=== PATIENT | male | born 1930 | race Caucasian/White ===

== ENCOUNTER 2017-06-01 07:56 | Inpatient (IN) | payer MEDICARE, BC ==
[~2017-06-01] VITALS: Ht 171.4 cm; Wt 65.0 kg
[2017-06-01] VITALS (14 sets, daily range): BP systolic 118–149; BP diastolic 55–86; PULSE 54–65; RESP 14–20; TEMP 96.1–98.1; O2SAT 90–100
[~2017-06-01 07:56] MED LIST: ASPI81TA82 PO; ATOR40TA PO; CIPR500T4 PO; DIOV320T PO; ERGO50000 PO; GLIP5 PO; METF500 PO; OSEL75 PO; TAMS0.4C67 PO
--- NOTE | 2017-06-01 08:50 | PD ---
HPI Chief Complaint: Altered Mental Status Time Seen by Provider: 08:29 Travel History International Travel<30 days: No Contact w/Intl Traveler<30days: No Traveled to known affect area: No History of Present Illness HPI This 86-year-old male is brought to the emergency department after having a hypoglycemic episode at home. He has a history of diabetes about 30 years. He is on metformin and glipizide. His says he was thrashing around this morning and was very confused. Paramedics report that his sugar was in the 20s and that he responded well to sugar. Patient's says that he has been somewhat lethargic for the last few weeks. He has not been as active as usual. He has been sleeping a lot. He does play golf every week and was complaining that he was short of breath recently. He was taken to Dr. Knutson's office the other day and at that time his hemoglobin was 7.5. Patient is not aware of any history of anemia. He had a colonoscopy many years ago but not recently. He is not aware of losing blood in his stool. He does sleep a lot and gets short of breath easily. He does not smoke. He drinks wine occasionally he is not having pain he has been complaining of an itchy rash PFSH Past Medical History Hx Anticoagulant Therapy: Yes (asa) Cancer: No Cardiovascular Problems: Yes (STENT PLACEMENT) High Cholesterol: Yes Coronary Artery Disease: Yes Diabetes: Yes Diminished Hearing: No Endocrine: Yes Genitourinary: Yes Hypertension: Yes Kidney Stones: Yes Musculoskeletal: No Neurologic: No Psychiatric: No Reproductive: No Respiratory: No Past Surgical History Body Medical Devices: HEART STENT Cardiac Surgery: Yes (STENT PLACEMENT) Coronary Stent: Yes (25 YEARS AGO) Genitourinary Surgery: Yes (LITHOTRIPSY X1) Social History Alcohol Use: Yes (1-2 WINE DAILY) Tobacco Use: No Substance Use: No Allergies-Medications (Allergen,Severity, Reaction): Coded Allergies: No Known Allergies (Unverified Allergy, Unknown, 06/01/17) Reported Meds & Prescriptions Reported Meds & Active Scripts Active Reported Vesicare (Solifenacin) 5 Mg Tab 5 Mg PO DAILY Metformin (Metformin HCl) 1,000 Mg Tab 1,000 Mg PO BIDPC Tamsulosin (Tamsulosin HCl) 0.4 Mg Cap 0.4 Mg PO DAILY Glipizide 10 Mg Tab 10 Mg PO DAILY Take 30 minutes before a meal Diovan (Valsartan) 320 Mg Tab 320 Mg PO HS Lipitor (Atorvastatin Calcium) 40 Mg Tab 40 Mg PO HS Aspirin EC (Aspirin) 81 Mg Tabdr 81 Mg PO DAILY Review of Systems General / Constitutional: No: Fever, Chills Eyes: No: Diploplia, Blurred Vision HENT: No: Headaches, Vertigo Cardiovascular: No: Chest Pain or Discomfort, Palpitations Respiratory: Positive: Shortness of Breath, No: Cough Gastrointestinal: No: Nausea, Vomiting, Diarrhea Genitourinary: No: Urgency, Frequency Musculoskeletal: No: Myalgias Skin: Positive Rash, Positive Itching Endocrine: No: Heat Intolerance, Cold Intolerance Hematologic/Lymphatic: No: Easy Bruising Physical Exam Narrative GENERAL: Well-developed male SKIN: Focused skin assessment warm/dry. There are a few erythematous macules some which have a central excoriation HEAD: Atraumatic. Normocephalic. EYES: Pupils equal and round. No scleral icterus. No injection or drainage. ENT: No nasal bleeding or discharge. Mucous membranes pink and moist. NECK: Trachea midline. No JVD. CARDIOVASCULAR: Regular rate and rhythm. No murmur appreciated. RESPIRATORY: No accessory muscle use. Clear to auscultation. Breath sounds equal bilaterally. GASTROINTESTINAL: Abdomen soft, non-tender, nondistended. Hepatic and splenic margins not palpable. Stool is brown and guaiac positive MUSCULOSKELETAL: No obvious deformities. No clubbing. No cyanosis. No edema. NEUROLOGICAL: Awake and alert. No obvious cranial nerve deficits. Motor grossly within normal limits. Normal speech. He has poor short-term memory and has repetitive questioning PSYCHIATRIC: Appropriate mood and affect; insight and judgment normal. Data Data Last Documented VS Vital Signs Date Time Temp Pulse Resp B/P (MAP) Pulse Ox O2 Delivery O2 Flow Rate FiO2 06/01/17 09:47 56 16 126/55 (78) 97 2.00 06/01/17 08:09 98.1 06/01/17 08:00 Room Air Orders Orders Electrocardiogram (06/01/17 08:45) Complete Blood Count With Diff (06/01/17 08:45) Comprehensive Metabolic Panel (06/01/17 08:45) Prothrombin Time / Inr (Pt) (06/01/17 08:45) Act Partial Throm Time (Ptt) (06/01/17 08:45) Urinalysis - C+S If Indicated (06/01/17 08:45) Magnesium (Mg) (06/01/17 08:45) Chest, Single Ap (06/01/17 08:45) Type And Screen (06/01/17 08:45) Iron/Tibc Profile (06/01/17 08:45) Vitamin B12 (06/01/17 08:45) Folate, Serum (06/01/17 08:45) Red Blood Cells (Rbc) (06/01/17 09:40) Pantoprazole Inj (Protonix Inj) (06/01/17 10:15) Pantoprazole Inj (Protonix Inj) (06/01/17 10:15) Admit Order (Ed Use Only) (06/01/17 10:37) Labs Laboratory Tests Test 06/01/17 09:15 4 09:45 White Blood Count 9.7 TH/MM3 Red Blood Count 2.64 MIL/MM3 Hemoglobin 6.7 GM/DL Hematocrit 20.7 % Mean Corpuscular Volume 78.3 FL Mean Corpuscular Hemoglobin 25.4 PG Mean Corpuscular Hemoglobin Concent 32.4 % Red Cell Distribution Width 16.0 % Platelet Count 341 TH/MM3 Mean Platelet Volume 8.3 FL Neutrophils (%) (Auto) 81.1 % Lymphocytes (%) (Auto) 11.5 % Monocytes (%) (Auto) 6.1 % Eosinophils (%) (Auto) 0.5 % Basophils (%) (Auto) 0.8 % Neutrophils # (Auto) 7.9 TH/MM3 Lymphocytes # (Auto) 1.1 TH/MM3 Monocytes # (Auto) 0.6 TH/MM3 Eosinophils # (Auto) 0.0 TH/MM3 Basophils # (Auto) 0.1 TH/MM3 CBC Comment AUTO DIFF Differential Comment AUTO DIFF CONFIRMED Target Cells 1+ Ovalocytes 1+ Prothrombin Time 10.1 SEC Prothromb Time International Ratio 1.0 RATIO Activated Partial Thromboplast Time 22.4 SEC Blood Urea Nitrogen 18 MG/DL Creatinine 1.10 MG/DL Random Glucose 96 MG/DL Total Protein 6.9 GM/DL Albumin 3.2 GM/DL Calcium Level 8.1 MG/DL Magnesium Level 1.8 MG/DL Alkaline Phosphatase 53 U/L Aspartate Amino Transf (AST/SGOT) 19 U/L Alanine Aminotransferase (ALT/SGPT) 15 U/L Total Bilirubin 0.2 MG/DL Sodium Level 137 MEQ/L Potassium Level 4.6 MEQ/L Chloride Level 106 MEQ/L Carbon Dioxide Level 22.1 MEQ/L Anion Gap 9 MEQ/L Estimat Glomerular Filtration Rate 63 ML/MIN Iron Level 10 MCG/DL Total Iron Binding Capacity 410 MCG/DL Percent Iron Saturation 2.4 % Vitamin B12 Level 407 PG/ML Folate 17.4 NG/ML Urine Collection Type CLEAN CATCH Urine Color YELLOW Urine Turbidity CLEAR Urine pH 5.5 Urine Specific [place] GREATER/EQUAL 1.030 Urine Protein NEG mg/dL Urine Glucose (UA) NEG mg/dL Urine Ketones NEG mg/dL Urine Occult Blood NEG Urine Nitrite NEG Urine Bilirubin NEG Urine Urobilinogen 0.2 MG/DL Urine Leukocyte Esterase NEG Urine RBC 0-3 /hpf Urine WBC 0-2 /hpf Urine Squamous Epithelial Cells 0-5 /hpf Microscopic Urinalysis Comment CULT NOT INDICATED Urine Collection Time 09:45 MDM Medical Decision Making Medical Screen Exam Complete: Yes Emergency Medical Condition: Yes Medical Record Reviewed: Yes Differential Diagnosis Differential includes hypoglycemia, anemia Narrative Course His hemoglobin today is 6.8 in his stool is positive for blood. He will be admitted for further evaluation of his blood loss anemia Diagnosis Primary Impression: Anemia Admitting Information Admitting Physician Requests: Admit Torito Sawyer MD Jun 01, 2017 08:50
--- NOTE | 2017-06-01 09:22 | RADRPT ---
EXAM DATE/TIME: 06/01/2017 08:48 [facility] COMPARISON: No previous studies available for comparison. INDICATIONS : Short of breath, hypoglycemic episode. MEDICAL HISTORY : Hypertension. Hypercholesterolemia. Renal calculi. Diabetic. SURGICAL HISTORY : Carotid stent. Lithotripsy. ENCOUNTER: Initial ACUITY: 1 day PAIN SCORE: 0/10 LOCATION: chest FINDINGS: A single view of the chest demonstrates the lungs to be symmetrically aerated without evidence of mas s, infiltrate or effusion. The cardiomediastinal contours are unremarkable. Osseous structures are intact. CONCLUSION: The lungs are clear. Sarbjit Savage MD on June 01, 2017 at 9:20 Board Certified Radiologist. This report was verified electronically.
[2017-06-01 09:25] LABS: AUTOMATED NEUTROPHIL # 7.9 TH/MM3 (1.8-7.7); BASOPHIL # 0.1 TH/MM3 (0-0.2); BASOPHIL % 0.8 % (0.0-2.0); EOSINOPHIL % 0.5 % (0.0-4.0); LYMPH % 11.5 % (9.0-44.0); LYMPHOCYTE # 1.1 TH/MM3 (1.0-4.8); MEAN CELL VOLUME 78.3 FL (80.0-100.0); MEAN CORPUSCULAR HEMOGLOBIN 25.4 PG (27.0-34.0); MEAN CORPUSCULAR HGB CONC 32.4 % (32.0-36.0); MEAN PLATELET VOLUME 8.3 FL (7.0-11.0); MONO % 6.1 % (0.0-8.0); MONOCYTE # 0.6 TH/MM3 (0-0.9); NEUT % 81.1 % (16.0-70.0); PLATELET COUNT 341 TH/MM3 (150-450); RED BLOOD COUNT 2.64 MIL/MM3 (4.50-5.90); WHITE BLOOD COUNT 9.7 TH/MM3 (4.0-11.0)
[2017-06-01 09:29] LABS: HEMATOCRIT 20.7 % (39.0-51.0); HEMOGLOBIN 6.7 GM/DL (13.0-17.0)
[2017-06-01] MEDS ORDERED: DIOV320T PO (09:34)
[2017-06-01] MEDS ORDERED: LIPI40TA PO (09:34)
[2017-06-01] MEDS ORDERED: GLIP10TA6 PO (09:34)
[2017-06-01] MEDS ORDERED: ASPI81TA23 PO (09:34)
[2017-06-01] MEDS ORDERED: TAMS0.4C4 PO (09:34)
[2017-06-01] MEDS ORDERED: METF1000 PO (09:34)
[2017-06-01] MEDS ORDERED: BACT800T5 PO (09:35)
[2017-06-01] MEDS ORDERED: VESI5TAB2 PO (09:35)
[2017-06-01 09:40] LABS: PROTHROMBIN TIME - PATIENT 10.1 SEC (9.8-11.6)
[2017-06-01 09:50] LABS: BILIRUBIN, URINE NEG (NEG); BLOOD, URINE NEG (NEG); GLUCOSE,URINE NEG (NEG); KETONE, URINE NEG (NEG); NITRITE,URINE NEG (NEG); PH, URINE 5.5 (5.0-8.5); URINE COLOR YELLOW (YELLW/STRAW); URINE LEUKOCYTE ESTERASE NEG (NEG)
[2017-06-01 09:51] LABS: CALCIUM 8.1 MG/DL (8.5-10.1); OVALOCYTES 1+ (NORMAL); TARGET CELLS 1+ (NORMAL)
[2017-06-01 09:52] LABS: ALBUMIN 3.2 GM/DL (3.4-5.0); BICARBONATE 22.1 MEQ/L (21.0-32.0); BLOOD UREA NITROGEN 18 MG/DL (7-18); GLUCOSE,RANDOM 96 MG/DL (74-106); MAGNESIUM 1.8 MG/DL (1.5-2.5)
[2017-06-01 09:55] LABS: ALT (GPT) 15 U/L (12-78); AST (GOT) 19 U/L (15-37); GLOMERULAR FILTRATION RATE 63 ML/MIN (>89)
[2017-06-01 09:57] LABS: TOTAL PROTEIN 6.9 GM/DL (6.4-8.2)
[2017-06-01 09:59] LABS: RBC, URINE 0-3 /hpf (0-3); SQUAMOUS EPITHELIAL CELL URINE 0-5 /hpf (0-5); WBC, URINE 0-2 /hpf (0-5)
[2017-06-01 09:59] LABS: TOTAL BILIRUBIN ADULT 0.2 MG/DL (0.2-1.0)
[2017-06-01 10:01] LABS: ALKALINE PHOSPHATASE 53 U/L (45-117)
[2017-06-01 10:02] LABS: CHLORIDE 106 MEQ/L (98-107); SODIUM (NA) 137 MEQ/L (136-145)
[2017-06-01] MEDS ORDERED: PANTOPRAZOLE INJ 80 MG in SODIUM CHLORIDE 0.9% INJ 35 ML IV ONE (10:15)
[2017-06-01 10:44] LABS: IRON (FE) 10 MCG/DL (65-175)
[2017-06-01] MEDS: PANTOPRAZOLE INJ 80 MG in SODIUM CHLORIDE 0.9% INJ 100 ML IV SCH ×2 (11:03→20:58)
[2017-06-01 11:09] LABS: % SATURATION IRON PROFILE 2.4 % (20-50); FOLATE 17.4 NG/ML (3.1-17.5); TOTAL IRON BINDING CAPACITY 410 MCG/DL (250-450)
[2017-06-01] MEDS ORDERED: ACETAMINOPHEN 325 MG TAB PO PRN (11:45)
[2017-06-01] MEDS ORDERED: GLUCAGON 1 MG/ML VIAL IM PRN (11:45)
[2017-06-01] MEDS ORDERED: NALOXONE HCL 0.4 MG/ML AMP IV PUSH PRN (11:45)
[2017-06-01] MEDS ORDERED: SODIUM CHLORIDE 0.9% FLUSH 10 ML FLUSH IV FLUSH PRN (11:45)
[2017-06-01] MEDS ORDERED: DEXTROSE 50% IN WATER 50 ML VIAL(D50) IV PUSH PRN (11:45)
[2017-06-01] MEDS ORDERED: ONDANSETRON HCL 4 MG/2 ML VIAL IVP PRN (11:45)
[2017-06-01] MEDS ORDERED: SENNOSIDES 8.6 MG TAB PO PRN (11:45)
[2017-06-01] MEDS: DEXTROSE 5% IN WATE 1000ML INJ 1,000 ML IV SCH (12:05)
[2017-06-01] MEDS: INSULIN ASPART SUPPLEMENTAL SCALE SQ SCH ×3 (12:06→20:19)
--- NOTE | 2017-06-01 12:57 | HHI.HP ---
[facility] Non-Staff Admission Diagnosis ANEMIA Diagnoses: Chief Complaint: Confusion Travel History International Travel<30 Days: No Contact w/Intl Traveler <30 Da: No Traveled to Known Affected Are: No History of Present Illness This patient is an 86-year-old gentleman with a history of diabetes and coronary disease who was recently prescribed Bactrim for urinary tract infection by his primary care provider. Patient did have increased confusion from underlying baseline cognitive impairment per his spouse. He was not nauseated or vomiting but he was not himself and his called 911. The blood sugar on the arrival of the EMS services was 29. Here it has been in the 40s and 50s despite hypoglycemic treatment. Patient also was increasingly short of breath over the last week. His hemoglobin has dropped significantly. He is not aware of any history of anemia and does complain of some black stools. Guaiac positive evaluation was obtained in the emergency room. Patient does take aspirin daily for coronary artery disease with a stent. Cardiac evaluation per the patient recently by his primary care doctor was within normal limits. He did have some frequent urination and was placed on Bactrim again in addition to Flomax and Vesicare which he took already for urinary troubles. Patient at this time is alert and oriented. Get his blood sugar is still quite low and patient will require intravenous glucose for continued stabilization. For these reasons he is admitted to the hospital Review of Systems Constitutional: DENIES: Diaphoretic episodes, Fatigue, Fever, Weight gain, Weight loss, Chills, Dizziness, Change in appetite, Night Sweats Endocrine: DENIES: Heat/cold intolerance, Polydipsia, Polyuria, Polyphagia Eyes: DENIES: Blurred vision, Diplopia, Eye inflammation, Eye pain, Vision loss , Photosensitivity, Double Vision Ears, nose, mouth, throat: DENIES: Tinnitus, Hearing loss, Vertigo, Nasal discharge, Oral lesions, Throat pain, Hoarseness, Ear Pain, Running Nose, Epistaxis, Sinus Pain, Toothache, Odynophagia Respiratory: DENIES: Apneas, Cough, Snoring, Wheezing, Hemoptysis, Sputum production, Shortness of breath Cardiovascular: DENIES: Chest pain, Palpitations, Syncope, Dyspnea on Exertion , PND, Lower Extremity Edema, Orthopnea, Claudication Gastrointestinal: COMPLAINS OF: Black stools, DENIES: Abdominal pain, Bloody stools, Constipation, Diarrhea, Nausea, Vomiting, Difficulty Swallowing, Anorexia Musculoskeletal: DENIES: Joint pain, Muscle aches, Stiffness, Joint Swelling, Back pain, Neck pain Integumentary: DENIES: Abnormal pigmentation, Nail changes, Pruritus, Rash Neurologic: DENIES: Abnormal gait, Headache, Localized weakness, Paresthesias, Seizures, Speech Problems, Tremor, Poor Balance Psychiatric: COMPLAINS OF: Confusion, DENIES: Anxiety, Mood changes, Depression , Hallucinations, Agitation, Suicidal Ideation, Homicidal Ideation, Delusions Except as stated in HPI: all other systems reviewed are Neg Past Family Social History Past Medical History Diabetes Coronary artery disease Hypertension Hyperlipidemia Benign prostatic hyperplasia Past Surgical History Cardiac stent Reported Medications Reviewed in the EMR, no recent changes other than Bactrim Allergies: Coded Allergies: No Known Allergies (Unverified Allergy, Unknown, 06/01/17) Physical Exam Vital Signs Vital Signs Date Time Temp Pulse Resp B/P (MAP) Pulse Ox O2 Delivery O2 Flow Rate FiO2 06/01/17 10:43 57 16 120/56 (77) 97 Nasal Cannula 2.00 06/01/17 09:47 56 16 126/55 (78) 97 2.00 06/01/17 08:09 98.1 65 16 138/58 (84) 95 06/01/17 08:00 16 95 Room Air Physical Exam GENERAL: This is a well-nourished, well-developed patient, in no apparent distress. SKIN: No rashes, ecchymoses or lesions. Cool and dry. HEAD: Atraumatic. Normocephalic. No temporal or scalp tenderness. EYES: Pupils equal round and reactive. Extraocular motions intact. No scleral icterus. No injection or drainage. ENT: Nose without bleeding, purulent drainage or septal hematoma. Throat without erythema, tonsillar hypertrophy or exudate. Uvula midline. Airway patent. NECK: Trachea midline. No JVD or lymphadenopathy. Supple, nontender, no meningeal signs. CARDIOVASCULAR: Regular rate and rhythm without murmurs, gallops, or rubs. RESPIRATORY: Clear to auscultation. Breath sounds equal bilaterally. No wheezes , rales, or rhonchi. GASTROINTESTINAL: Abdomen soft, non-tender, nondistended. No hepato-splenomegaly , or palpable masses. No guarding. MUSCULOSKELETAL: Extremities without clubbing, cyanosis, or edema. No joint tenderness, effusion, or edema noted. No calf tenderness. Negative Homans sign bilaterally. NEUROLOGICAL: Awake and alert. Cranial nerves II through XII intact. Motor and sensory grossly within normal limits. Five out of 5 muscle strength in all muscle groups. Normal speech. Laboratory Laboratory Tests Test 06/01/17 09:15 06/01/17 09:45 06/01/17 12:00 White Blood Count 9.7 Red Blood Count 2.64 Hemoglobin 6.7 Hematocrit 20.7 Mean Corpuscular Volume 78.3 Mean Corpuscular Hemoglobin 25.4 Mean Corpuscular Hemoglobin Concent 32.4 Red Cell Distribution Width 16.0 Platelet Count 341 Mean Platelet Volume 8.3 Neutrophils (%) (Auto) 81.1 Lymphocytes (%) (Auto) 11.5 Monocytes (%) (Auto) 6.1 Eosinophils (%) (Auto) 0.5 Basophils (%) (Auto) 0.8 Neutrophils # (Auto) 7.9 Lymphocytes # (Auto) 1.1 Monocytes # (Auto) 0.6 Eosinophils # (Auto) 0.0 Basophils # (Auto) 0.1 CBC Comment AUTO DIFF Differential Comment AUTO DIFF CONFIRMED Target Cells 1+ Ovalocytes 1+ Prothrombin Time 10.1 Prothromb Time International Ratio 1.0 Activated Partial Thromboplast Time 22.4 Blood Urea Nitrogen 18 Creatinine 1.10 Random Glucose 96 50 Total Protein 6.9 Albumin 3.2 Calcium Level 8.1 Magnesium Level 1.8 Alkaline Phosphatase 53 Aspartate Amino Transf (AST/SGOT) 19 Alanine Aminotransferase (ALT/SGPT) 15 Total Bilirubin 0.2 Sodium Level 137 Potassium Level 4.6 Chloride Level 106 Carbon Dioxide Level 22.1 Anion Gap 9 Estimat Glomerular Filtration Rate 63 Iron Level 10 Total Iron Binding Capacity 410 Percent Iron Saturation 2.4 Vitamin B12 Level 407 Folate 17.4 Urine Collection Type CLEAN CATCH Urine Color YELLOW Urine Turbidity CLEAR Urine pH 5.5 Urine Specific [place] GREATER/EQUAL 1.030 Urine Protein NEG Urine Glucose (UA) NEG Urine Ketones NEG Urine Occult Blood NEG Urine Nitrite NEG Urine Bilirubin NEG Urine Urobilinogen 0.2 Urine Leukocyte Esterase NEG Urine RBC 0-3 Urine WBC 0-2 Urine Squamous Epithelial Cells 0-5 Microscopic Urinalysis Comment CULT NOT INDICATED Urine Collection Time 09:45 Result Diagram: 06/01/17 0915 06/01/17 1200 Imaging Last Impressions Chest X-Ray 06/01/17 0845 Signed Impressions: Service Date/Time: Thursday, June 01, 2017 08:48 - CONCLUSION: The lungs are clear. MD Gianfranco Ortiz VTE Risk Assessment Caprini VTE Risk Assessment: Mod/High Risk (score >= 2) VTE Pharm Contraindication: Active bleeding Caprini Risk Assessment Model Point Value = 1 Point Value = 2 Point Value = 3 Point Value = 5 Age 41-60 Minor surgery BMI > 25 kg/m2 Swollen legs Varicose veins or History of unexplained or recurrent spontaneous Oral contraceptives or hormone replacement Sepsis (< 1 month) Serious lung disease, including pneumonia (< 1 month) Abnormal pulmonary function Acute myocardial infarction Congestive heart failure (< 1 month) History of inflammatory bowel disease Medical patient at bed rest Age 61-74 Arthroscopic surgery Major open surgery (> 45 min) Laparoscopic surgery (> 45 min) Malignancy Confined to bed (> 72 hours) Immobilizing plaster cast Central venous access Age >= 75 History of VTE Family history of VTE Factor V Leiden Prothrombin [id number] Lupus anticoagulant Anticardiolipin antibodies Elevated serum homocysteine Heparin-induced thrombocytopenia Other congenital or acquired thrombophilia Stroke (< 1 month) Elective arthroplasty Hip, pelvis, or leg fracture Acute spinal cord injury (< 1 month) Prophylaxis Regimen Total Risk Factor Score Risk Level Prophylaxis Regimen 0-1 Low Early ambulation 2 Moderate Order ONE of the following: *Sequential Compression Device (SCD) *Heparin 5000 units SQ BID 3-4 Higher Order ONE of the following medications: *Heparin 5000 units SQ TID *Enoxaparin/Lovenox 40 mg SQ daily (WT < 150 kg, CrCl > 30 mL/min) *Enoxaparin/Lovenox 30 mg SQ daily (WT < 150 kg, CrCl > 10-29 mL/min) *Enoxaparin/Lovenox 30 mg SQ BID (WT < 150 kg, CrCl > 30 mL/min) AND/OR *Sequential Compression Device (SCD) 5 or more Highest Order ONE of the following medications: *Heparin 5000 units SQ TID (Preferred with Epidurals) *Enoxaparin/Lovenox 40 mg SQ daily (WT < 150 kg, CrCl > 30 mL/min) *Enoxaparin/Lovenox 30 mg SQ daily (WT < 150 kg, CrCl > 10-29 mL/min) *Enoxaparin/Lovenox 30 mg SQ BID (WT < 150 kg, CrCl > 30 mL/min) AND *Sequential Compression Device (SCD) Assessment and Plan Problem List: (1) Hypoglycemia ICD Code: E16.2 - Hypoglycemia, unspecified Plan: 1 patient with known diabetes and persistent hypoglycemia which is quite symptomatic Continue with dextrose infusion, hypoglycemia protocol and continue with monitoring blood sugar Previous hemoglobin A1c is 7.0 and patient has been taking metformin and a glipizide Hypoglycemia may be due to the recent Bactrim prescribed for urinary tract infection will continue to hold this medication (2) Anemia ICD Code: D64.9 - Anemia, unspecified Plan: With some evidence of GI bleeding by rectal exam in the emergency room. Will hold aspirin Follow-up after blood transfusion GI consult for possible endoscopy Continue Protonix infusion Code Status Full code Discussed Condition With Patient, ER MD, spouse Physician Certification 2 Midnight Certification Type: Admission for Inpatient Services Order for Inpatient Services The services are ordered in accordance with Medicare regulations or non- Medicare payer requirements, as applicable. In the case of services not specified as inpatient-only, they are appropriately provided as inpatient services in accordance with the 2-midnight benchmark. Estimated LOS (days): 3 3 days is the estimated time the patient will need to remain in the hospital, assuming treatment plan goals are met and no additional complications. Post-Hospital Plan: Home Rani Bergman MD Jun 01, 2017 12:57
[2017-06-01] MEDS ORDERED: SODIUM CHLOR 0.9% 250 ML INJ 250 ML IV ONE (13:00)
[2017-06-01] MEDS: TAMSULOSIN HCL 0.4 MG CAP PO SCH (13:31)
--- NOTE | 2017-06-01 16:08 | EKG ---
Date Performed: 06/01/2017 Time Performed: 08:52:15 PTAGE: 86 years EKG: SINUS BRADYCARDIA WITH OCCASIONAL SUPRAVENTRICULAR PREMATURE COMPLEXES BORDERLINE ECG PREVIOUS TRACING : 05/11/2015 02.44 Compared to previous tracing, nonspecific T wave abnormalit y is no longer present. DOCTOR: Killian Maldonado Interpretating Date/Time 06/01/2017 16:06:41
--- NOTE | 2017-06-01 16:14 | PD.CONS ---
HPI History of Present Illness This is a 86 year old male who was in his usual state of health up until a few weeks ago where he began to get fatigued tired and restless and then about 10 days ago [place] and had an episode of shortness of breath he took a rest and thereafter went home but he continued to have problems with being tired and to a lesser extent short of breath but then this morning when he woke up he was very confused and 911 was called and the ambulance found him to be hypoglycemic. The patient had gone to a medical facility and had some blood work done and he was found to have UTI and he was placed on Bactrim patient is known to be a diabetic and he takes metformin and glipizide and I think at this point it seems that the interaction here because his hypoglycemia Prior to this event the patient had been a poorly controlled diabetic is per his who is at his bedside together with a friend and basically she is the one is providing most of the history because the patient appears to be slightly confused The patient had a colonoscopy many years ago and never had an upper endoscopy The patient also apparently is on a baby aspirin a day and on admission he was found to have guaiac positive stools through the emergency room and the reports that apparently the patient has had black stools recently PFSH Past Medical History Diabetes Coronary artery disease Hypertension Hyperlipidemia Benign prostatic hyperplasia Past Surgical History Cardiac stent Coded Allergies: No Known Allergies (Unverified Allergy, Unknown, 06/01/17) Medications Current Medications Medications (Trade) Dose Ordered Sig/Quan Route PRN Reason Start Time Stop Time Status Last Admin Dose Admin Pantoprazole Sodium 80 mg/ Sodium Chloride 100 ml @ 10 mls/hr CONTINUOUS IV 06/01/17 10:15 06/01/17 11:03 Dextrose (D50w (Vial) Inj) 50 ml UNSCH PRN IV PUSH HYPOGLYCEMIA-SEE COMMENTS 06/01/17 11:45 Glucagon (Glucagon Inj) 1 mg STAT PRN IM HYPOGLYCEMIA-SEE COMMENTS 06/01/17 11:45 Dextrose 1,000 ml @ 75 mls/hr [id number] IV 06/01/17 12:00 06/01/17 12:05 Atorvastatin Calcium (Lipitor) 40 mg HS PO 06/01/17 21:00 Tamsulosin HCl (Flomax) 0.4 mg DAILY PO 06/01/17 12:00 06/01/17 13:31 Valsartan (Diovan) 320 mg HS PO 06/01/17 21:00 Insulin Aspart (NovoLOG SUPPLEMENTAL SCALE) 1 ACHS SLIDING SCALE SQ 06/01/17 12:00 Sodium Chloride (NS Flush) 2 ml UNSCH PRN IV FLUSH FLUSH AFTER USING IV ACCESS 06/01/17 11:45 Sodium Chloride (NS Flush) 2 ml BID IV FLUSH 06/01/17 21:00 Acetaminophen (Tylenol) 650 mg Q4H PRN PO TEMP > 100.4 06/01/17 11:45 Ondansetron HCl (Zofran Inj) 4 mg Q6H PRN IVP NAUSEA OR VOMITING 06/01/17 11:45 Naloxone HCl (Narcan Inj) 0.4 mg UNSCH PRN IV PUSH SEE LABEL COMMENTS 06/01/17 11:45 Sennosides (Senokot) 17.2 mg Q12H PRN PO Moderate constipation 06/01/17 11:45 Sodium Chloride 250 ml @ 15 mls/hr ONCE ONCE IV 06/01/17 13:00 06/02/17 05:39 06/01/17 13:00 Family History Noncontributory Social History Patient admits to alcohol use on a daily basis but no tobacco use Review of Systems Review of systems Patient denies any headache dizziness blurry vision, denies any chest pain cough fever chills, but apparently has had shortness of breath Denies any palpitations but apparently has had fatigue denies any polyuria dysuria hematuria, denies any numbness tingling or weakness, denies any skin rash pruritus or jaundice, denies any easy bruising or bleeding tendency, denies any recent change in mood GI Exam Vitals I&O Vital Signs Date Time Temp Pulse Resp B/P (MAP) Pulse Ox O2 Delivery O2 Flow Rate FiO2 06/01/17 15:38 97.1 63 18 125/63 100 06/01/17 15:07 97.1 60 18 139/81 100 06/01/17 14:50 97.0 58 18 135/63 98 06/01/17 14:35 96.1 58 20 137/67 98 06/01/17 12:00 96.9 65 16 132/62 (85) 97 06/01/17 12:00 96.9 65 16 132/62 (85) 97 06/01/17 10:43 57 16 120/56 (77) 97 Nasal Cannula 2.00 06/01/17 09:47 56 16 126/55 (78) 97 2.00 06/01/17 08:09 98.1 65 16 138/58 (84) 95 06/01/17 08:00 16 95 Room Air Imaging Last Impressions Chest X-Ray 06/01/17 0845 Signed Impressions: Service Date/Time: Thursday, June 01, 2017 08:48 - CONCLUSION: The lungs are clear. Sarbjit Savage MD Laboratory Test 06/01/17 09:15 06/01/17 09:45 06/01/17 12:00 White Blood Count 9.7 TH/MM3 Red Blood Count 2.64 MIL/MM3 Hemoglobin 6.7 GM/DL Hematocrit 20.7 % Mean Corpuscular Volume 78.3 FL Mean Corpuscular Hemoglobin 25.4 PG Mean Corpuscular Hemoglobin Concent 32.4 % Red Cell Distribution Width 16.0 % Platelet Count 341 TH/MM3 Mean Platelet Volume 8.3 FL Neutrophils (%) (Auto) 81.1 % Lymphocytes (%) (Auto) 11.5 % Monocytes (%) (Auto) 6.1 % Eosinophils (%) (Auto) 0.5 % Basophils (%) (Auto) 0.8 % Neutrophils # (Auto) 7.9 TH/MM3 Lymphocytes # (Auto) 1.1 TH/MM3 Monocytes # (Auto) 0.6 TH/MM3 Eosinophils # (Auto) 0.0 TH/MM3 Basophils # (Auto) 0.1 TH/MM3 CBC Comment AUTO DIFF Differential Comment AUTO DIFF CONFIRMED Target Cells 1+ Ovalocytes 1+ Prothrombin Time 10.1 SEC Prothromb Time International Ratio 1.0 RATIO Activated Partial Thromboplast Time 22.4 SEC Blood Urea Nitrogen 18 MG/DL Creatinine 1.10 MG/DL Random Glucose 96 MG/DL 50 MG/DL Total Protein 6.9 GM/DL Albumin 3.2 GM/DL Calcium Level 8.1 MG/DL Magnesium Level 1.8 MG/DL Alkaline Phosphatase 53 U/L Aspartate Amino Transf (AST/SGOT) 19 U/L Alanine Aminotransferase (ALT/SGPT) 15 U/L Total Bilirubin 0.2 MG/DL Sodium Level 137 MEQ/L Potassium Level 4.6 MEQ/L Chloride Level 106 MEQ/L Carbon Dioxide Level 22.1 MEQ/L Anion Gap 9 MEQ/L Estimat Glomerular Filtration Rate 63 ML/MIN Iron Level 10 MCG/DL Total Iron Binding Capacity 410 MCG/DL Percent Iron Saturation 2.4 % Vitamin B12 Level 407 PG/ML Folate 17.4 NG/ML Urine Collection Type CLEAN CATCH Urine Color YELLOW Urine Turbidity CLEAR Urine pH 5.5 Urine Specific [place] GREATER/EQUAL 1.030 Urine Protein NEG mg/dL Urine Glucose (UA) NEG mg/dL Urine Ketones NEG mg/dL Urine Occult Blood NEG Urine Nitrite NEG Urine Bilirubin NEG Urine Urobilinogen 0.2 MG/DL Urine Leukocyte Esterase NEG Urine RBC 0-3 /hpf Urine WBC 0-2 /hpf Urine Squamous Epithelial Cells 0-5 /hpf Microscopic Urinalysis Comment CULT NOT INDICATED Urine Collection Time 09:45 Physical Examination HEENT: Pupils round and reactive to light; normocephalic; atraumatic; no jaundice. Throat is clear. NECK: Neck is supple, no JVD, no lymphadenopathy. CHEST: Chest is clear to auscultation and percussion. CARDIAC: Regular rate and rhythm with no murmur gallop or rubs. ABDOMEN: Soft, nondistended, nontender; no hepatosplenomegaly; bowel sounds are present in all four quadrants. EXTREMITIES: No clubbing, cyanosis, or edema. SKIN: Normal; no rash; no jaundice. DRAPERY CUTTER: No focal deficits; alert and oriented 2 Assessment and Plan Plan Patient presenting with symptomatic profound anemia with complaints of shortness of breath and fatigue who also reports melena and is found to have guaiac positive stools Agree with current supportive care Monitor labs and transfuse as needed Continue with pantoprazole Patient will need an EGD and a colonoscopy But first I will obtain CT of the abdomen Further recommendations she will depend on his hospital course Balta Dangelo MD Jun 01, 2017 16:14
[2017-06-01] MEDS: SODIUM CHLORIDE 0.9% FLUSH 10 ML FLUSH IV FLUSH SCH (20:19)
[2017-06-01] MEDS: VALSARTAN 80 MG TAB PO SCH (21:00)
[2017-06-01] MEDS: ATORVASTATIN 40 MG TAB PO SCH (21:09)
[2017-06-01] MEDS ORDERED: DIATRIZOATE MEGLUM/DIATRIZOATE SOD 9 ML CUP PO ONE (21:15)
[2017-06-02] VITALS: BP 117/56; PULSE 55; RESP 20; TEMP 98.3; O2SAT 96
[2017-06-02] MEDS: METFORMIN HOLD POST IV CONTRAST SCH (00:40)
[2017-06-02] MEDS ORDERED: IOHEXOL 350 MG/ML 10 ML VIAL (for RAD DIAG) IVCONTRAST ONE (00:40)
--- NOTE | 2017-06-02 01:43 | RADRPT ---
EXAM DATE/TIME: 06/02/2017 00:33 [facility] COMPARISON: No previous studies available for comparison. INDICATIONS : Anemic complaints of shortness of breath and fatigue with melena and is found to have guaiac positiv e stools. IV CONTRAST: 95 cc Omnipaque 350 (iohexol) IV ORAL CONTRAST: Prescribed oral contrast ingested. RADIATION DOSE: 9.23 CTDIvol (mGy) MEDICAL HISTORY : Hypertension. Renal calculi. Cardiovascular diseaseDiabetes. SURGICAL HISTORY : Coronary artery stent. ENCOUNTER: Initial ACUITY: 2 days PAIN SCALE: 0/10 LOCATION: pelvis abdomen TECHNIQUE: Volumetric scanning of the abdomen and pelvis was performed. Using automated exposure control and ad justment of the mA and/or kV according to patient size, radiation dose was kept as low as reasonably achievable to obtain optimal diagnostic quality images. DICOM format image data is available electro nically for review and comparison. FINDINGS: LOWER LUNGS: Mild bilateral lower lobe atelectasis. LIVER: Homogeneous density without lesion. There is no dilation of the biliary tree. No calcified gallston es. SPLEEN: Normal size without lesion. PANCREAS: 1.7 cm round cyst at the inferior margin of the pancreatic head. Pancreas otherwise within normal hanna its. KIDNEYS: Multiple right-sided renal cysts. 1 cm posterior mid pole left renal cyst. No evidence of hydronephro sis. ADRENAL GLANDS: Within normal limits. VASCULAR: Extensive aortic/arterial calcification. Aortic diameter are within normal limits. BOWEL/MESENTERY: Mass like circumferential wall thickening of the cecum measuring 6 cm in length. Appendix within norm al limits. No evidence of bowel dilatation. No enlarged lymph nodes identified. Multiple sigmoid colo n diverticula. No evidence of acute diverticulitis. ABDOMINAL WALL: Within normal limits. RETROPERITONEUM: There is no lymphadenopathy. BLADDER: No wall thickening or mass. REPRODUCTIVE: Enlarged prostate measuring 5.9 cm in transverse dimension. Prostate calcification also noted. INGUINAL: There is no lymphadenopathy or hernia. MUSCULOSKELETAL: Small bilateral hip osteophytes. Moderate degenerative findings of the lumbar spine. CONCLUSION: 1. 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 2. No large lymph nodes. 3. Enlarged prostate. 4. Diffuse atherosclerotic disease. Arvin Medina MD on June 02, 2017 at 1:31 Board Certified Radiologist. This report was verified electronically.
[2017-06-02] MEDS: DEXTROSE 5% IN WATE 1000ML INJ 1,000 ML IV SCH (05:13)
[2017-06-02 06:52] LABS: AUTOMATED NEUTROPHIL # 5.6 TH/MM3 (1.8-7.7); BASOPHIL # 0.1 TH/MM3 (0-0.2); BASOPHIL % 0.6 % (0.0-2.0); EOSINOPHIL # 0.3 TH/MM3 (0-0.4); EOSINOPHIL % 3.9 % (0.0-4.0); HEMATOCRIT 26.3 % (39.0-51.0); HEMOGLOBIN 8.5 GM/DL (13.0-17.0); LYMPH % 21.5 % (9.0-44.0); LYMPHOCYTE # 1.9 TH/MM3 (1.0-4.8); MEAN CELL VOLUME 80.2 FL (80.0-100.0); MEAN CORPUSCULAR HGB CONC 32.4 % (32.0-36.0); MONO % 10.8 % (0.0-8.0); NEUT % 63.2 % (16.0-70.0); PLATELET COUNT 310 TH/MM3 (150-450); RED BLOOD COUNT 3.28 MIL/MM3 (4.50-5.90); RED CELL DISTRIBUTION WIDTH 16.1 % (11.6-17.2); WHITE BLOOD COUNT 8.9 TH/MM3 (4.0-11.0)
[2017-06-02 07:09] LABS: BICARBONATE 25.8 MEQ/L (21.0-32.0)
[2017-06-02 08:00] VITALS: BP 147/58; PULSE 56; RESP 16; TEMP 97.4; O2SAT 96
[2017-06-02] MEDS: INSULIN ASPART SUPPLEMENTAL SCALE SQ SCH ×4 (08:00→21:12)
[2017-06-02] MEDS ORDERED: ASPIRIN EC 81 MG TABEC PO SCH (09:00)
[2017-06-02] MEDS: SODIUM CHLORIDE 0.9% FLUSH 10 ML FLUSH IV FLUSH SCH ×2 (09:00→20:23)
[2017-06-02] MEDS: TAMSULOSIN HCL 0.4 MG CAP PO SCH (09:07)
--- NOTE | 2017-06-02 09:53 | HHI.GIFU ---
Subjective Remarks Pt is sitting in bed, denies nausea, vomiting, abd pain, melena or hematochezia , he is accompanied by a friend and (Gracy Loomis) Objective Vitals I&O Vital Signs Date Time Temp Pulse Resp B/P (MAP) Pulse Ox O2 Delivery O2 Flow Rate FiO2 06/02/17 00:00 98.3 55 20 117/56 (76) 96 06/01/17 21:54 97.2 54 16 125/86 90 06/01/17 20:00 97.4 58 20 129/63 (85) 97 06/01/17 18:45 97.5 62 18 134/60 95 06/01/17 18:30 97.5 61 18 128/61 95 06/01/17 17:29 97.0 62 149/58 99 06/01/17 16:00 98.0 59 14 118/63 (81) 96 06/01/17 16:00 98.0 59 14 118/63 (81) 96 06/01/17 15:38 97.1 63 18 125/63 100 06/01/17 15:07 97.1 60 18 139/81 100 06/01/17 14:50 97.0 58 18 135/63 98 06/01/17 14:35 96.1 58 20 137/67 98 06/01/17 12:00 96.9 65 16 132/62 (85) 97 06/01/17 12:00 96.9 65 16 132/62 (85) 97 06/01/17 10:43 57 16 120/56 (77) 97 Nasal Cannula 2.00 I/O 06/01/17 06/01/17 06/01/17 06/02/17 06/02/17 06/02/17 07:00 15:00 23:00 07:00 15:00 23:00 Intake Total 2130 ml 60 ml Output Total 800 ml 750 ml Balance 2130 ml -740 ml -750 ml Intake Oral 1220 ml 60 ml Packed Cells 800 ml Blood Product IV Normal Saline Flush 110 ml Output Urine Total 800 ml 750 ml # Voids 7 # Bowel Movements 1 Laboratory Laboratory Tests Test 06/01/17 12:00 06/02/17 06:35 Random Glucose 50 129 White Blood Count 8.9 Red Blood Count 3.28 Hemoglobin 8.5 Hematocrit 26.3 Mean Corpuscular Volume 80.2 Mean Corpuscular Hemoglobin 26.0 Mean Corpuscular Hemoglobin Concent 32.4 Red Cell Distribution Width 16.1 Platelet Count 310 Mean Platelet Volume 8.0 Neutrophils (%) (Auto) 63.2 Lymphocytes (%) (Auto) 21.5 Monocytes (%) (Auto) 10.8 Eosinophils (%) (Auto) 3.9 Basophils (%) (Auto) 0.6 Neutrophils # (Auto) 5.6 Lymphocytes # (Auto) 1.9 Monocytes # (Auto) 1.0 Eosinophils # (Auto) 0.3 Basophils # (Auto) 0.1 CBC Comment DIFF FINAL Differential Comment Blood Urea Nitrogen 8 Creatinine 1.00 Calcium Level 8.0 Sodium Level 135 Potassium Level 4.2 Chloride Level 104 Carbon Dioxide Level 25.8 Anion Gap 5 Estimat Glomerular Filtration Rate 71 Imaging Last Impressions Chest X-Ray 06/01/17 0845 Signed Impressions: Service Date/Time: Thursday, June 01, 2017 08:48 - CONCLUSION: The lungs are clear. Sarbjit Savage MD Abdomen/Pelvis CT 06/01/17 0000 Signed Impressions: Service Date/Time: Friday, June 02, 2017 00:33 - CONCLUSION: 1. 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 2. No large lymph nodes. 3. Enlarged prostate. 4. Diffuse atherosclerotic disease. Arvin Medina MD Physical Exam HEENT: normocephalic; atraumatic; no jaundice. NECK: Neck is supple, no JVD, no lymphadenopathy. CHEST: Chest is clear to auscultation and percussion. CARDIAC: Regular rate and rhythm with no murmur gallop or rubs. ABDOMEN: Soft, nondistended, nontender; no hepatosplenomegaly; bowel sounds are present in all four quadrants. EXTREMITIES: No clubbing, cyanosis, or edema. SKIN: Normal; no rash; no jaundice. CLAIM CLINICIAN: alert and oriented. (Gracy Loomis) Assessment and Plan Plan Patient presenting with symptomatic profound anemia with complaints of shortness of breath and fatigue who also reports melena and is found to have guaiac positive stools Ct 06/01/17 showed 6 Cm cecal mass very suspicious for malignancy, no evidence of mets hgb today 8.5 s/p 2 units of blood, no bleeding reported today, he is hemodynamically stable Plan: - Healthy diet - EGD/colonoscopy on Sunday - Golytely prep tomorrow - Clear liquids tomorrow - NPO mn tomorrow - Obtain consents - CEA - Monitor hh - Transfuse as needed - Pt seen and examined by Dr. Alcantara and myself and this note is written on his behalf. (Gracy Loomis) Physician Comments Seen and examined with OFFICE TECHNOLOGY INSTRUCTOR< egd/colonoscopy planned for sunday. Discussed with pt. and family. (Roni Alcantara MD) Gracy Loomis Jun 02, 2017 09:53 Roni Alcantara MD Jun 02, 2017 17:43
[2017-06-02] MEDS: PANTOPRAZOLE INJ 80 MG in SODIUM CHLORIDE 0.9% INJ 100 ML IV SCH (10:19)
--- NOTE | 2017-06-02 11:34 | HHI.PR ---
Subjective Remarks Patient seen and evaluated today in follow-up for anemia secondary to GI bleeding and acute blood loss Hemoglobin improved after blood transfusion of 2 units packed blood cells Patient also with improvement in hypoglycemia. Now with new cecal mass found Objective Vitals Vital Signs Date Time Temp Pulse Resp B/P (MAP) Pulse Ox O2 Delivery O2 Flow Rate FiO2 06/02/17 08:00 97.4 56 16 147/58 (87) 96 06/02/17 00:00 98.3 55 20 117/56 (76) 96 06/01/17 21:54 97.2 54 16 125/86 90 06/01/17 20:00 97.4 58 20 129/63 (85) 97 06/01/17 18:45 97.5 62 18 134/60 95 06/01/17 18:30 97.5 61 18 128/61 95 06/01/17 17:29 97.0 62 149/58 99 06/01/17 16:00 98.0 59 14 118/63 (81) 96 06/01/17 16:00 98.0 59 14 118/63 (81) 96 06/01/17 15:38 97.1 63 18 125/63 100 06/01/17 15:07 97.1 60 18 139/81 100 06/01/17 14:50 97.0 58 18 135/63 98 06/01/17 14:35 96.1 58 20 137/67 98 06/01/17 12:00 96.9 65 16 132/62 (85) 97 06/01/17 12:00 96.9 65 16 132/62 (85) 97 I/O 06/01/17 06/01/17 06/01/17 06/02/17 06/02/17 06/02/17 07:00 15:00 23:00 07:00 15:00 23:00 Intake Total 2130 ml 60 ml Output Total 800 ml 750 ml Balance 2130 ml -740 ml -750 ml Intake Oral 1220 ml 60 ml Packed Cells 800 ml Blood Product IV Normal Saline Flush 110 ml Output Urine Total 800 ml 750 ml # Voids 7 # Bowel Movements 1 Result Diagram: 06/02/17 0635 06/02/17 0635 Imaging Last Impressions Chest X-Ray 06/01/17 0845 Signed Impressions: Service Date/Time: Thursday, June 01, 2017 08:48 - CONCLUSION: The lungs are clear. Sarbjit Savage MD Abdomen/Pelvis CT 06/01/17 0000 Signed Impressions: Service Date/Time: Friday, June 02, 2017 00:33 - CONCLUSION: 1. 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 2. No large lymph nodes. 3. Enlarged prostate. 4. Diffuse atherosclerotic disease. Arvin Medina MD Objective Remarks GENERAL: This is a well-nourished, well-developed patient, repeats questions CARDIOVASCULAR: Regular rate and rhythm without murmurs, gallops, or rubs. RESPIRATORY: Clear to auscultation. Breath sounds equal bilaterally. No wheezes , rales, or rhonchi. GASTROINTESTINAL: Abdomen soft, non-tender, nondistended. Normal active bowel sounds MUSCULOSKELETAL: Extremities without clubbing, cyanosis, or edema. NEURO: Alert & Oriented x4 to person, place, time, situation. Moves all ext x4 A/P Problem List: (1) Hypoglycemia ICD Code: E16.2 - Hypoglycemia, unspecified Plan: Improved Previous hemoglobin A1c 7.0. follow closely with sliding scale only and ada diet (2) Anemia ICD Code: D64.9 - Anemia, unspecified Plan: With some evidence of GI bleeding by rectal exam in the emergency room. Will hold aspirin Follow-up after blood transfusion endoscopy sunday per gi Continue Protonix po d/w gi team (3) Cognitive impairment ICD Code: R41.89 - Other symptoms and signs involving cognitive functions and awareness Plan: Cognitive eval in progress per speech therapy (4) Mass of cecum ICD Code: K63.9 - Disease of intestine, unspecified Plan: Suspicious for malignancy Workup in progress Assessment and Plan If there is no urgent surgical needs patient and family would like to pursue further aggressive treatment in their home [facility] Discharge Planning Pending endoscopy Rani Bergman MD Jun 02, 2017 11:34
[2017-06-02 12:00] VITALS: BP 142/66; PULSE 55; RESP 18; TEMP 97.8; O2SAT 96
[2017-06-02 16:00] VITALS: BP 125/62; PULSE 69; RESP 18; TEMP 98.4; O2SAT 95
[2017-06-02] MEDS ORDERED: hydrOXYzine HCL 25 MG TAB PO ONE (20:30)
[2017-06-02] MEDS: VALSARTAN 80 MG TAB PO SCH (21:00)
[2017-06-02] MEDS: ATORVASTATIN 40 MG TAB PO SCH (21:05)
[2017-06-02 21:24] VITALS: BP 162/70; PULSE 70; RESP 16; TEMP 96.2; O2SAT 98
[2017-06-03] MEDS: METFORMIN HOLD POST IV CONTRAST SCH (00:40)
[2017-06-03 01:06] VITALS: BP 150/68; PULSE 68; RESP 18; TEMP 97; O2SAT 97
[2017-06-03] MEDS: INSULIN ASPART SUPPLEMENTAL SCALE SQ SCH ×4 (07:57→21:00)
[2017-06-03 08:00] VITALS: BP 166/70; PULSE 63; RESP 18; TEMP 98.2; O2SAT 96
[2017-06-03] MEDS: SODIUM CHLORIDE 0.9% FLUSH 10 ML FLUSH IV FLUSH SCH ×2 (09:00→21:00)
[2017-06-03] MEDS: PANTOPRAZOLE SOD 40 MG DELAYED RELEASE TAB PO SCH (09:46)
[2017-06-03] MEDS: TAMSULOSIN HCL 0.4 MG CAP PO SCH (09:46)
--- NOTE | 2017-06-03 09:46 | HHI.PR ---
Subjective Remarks Patient is agreeable to proceed with the EGD/colonoscopy however he is insistent for the jd edwards to speak with his Dr. in [place], Dr. Vital, prior to the procedure. and family friend at bedside. At this time, patient denies any abdominal pain, nausea or vomiting. He states he feels well. I did speak with after my interaction with patient, she is concerned about bleeding postprocedure. She is very nervous about the trip back to [place]. Objective Vitals Vital Signs Date Time Temp Pulse Resp B/P (MAP) Pulse Ox O2 Delivery O2 Flow Rate FiO2 06/03/17 04:00 06/03/17 01:06 97.0 68 18 150/68 (95) 97 06/02/17 21:24 96.2 70 16 162/70 (100) 98 06/02/17 16:00 98.4 69 18 125/62 (83) 95 06/02/17 12:00 97.8 55 18 142/66 (91) 96 I/O 06/02/17 06/02/17 06/02/17 06/03/17 06/03/17 06/03/17 07:00 15:00 23:00 07:00 15:00 23:00 Intake Total 60 ml 480 ml Output Total 800 ml 750 ml Balance -740 ml -750 ml 480 ml Intake Oral 60 ml 480 ml Output Urine Total 800 ml 750 ml # Voids 3 5 # Bowel Movements 1 Result Diagram: 06/02/17 0635 06/02/17 0635 Imaging Last Impressions Chest X-Ray 06/01/17 0845 Signed Impressions: Service Date/Time: Thursday, June 01, 2017 08:48 - CONCLUSION: The lungs are clear. Sarbjit Savage MD Abdomen/Pelvis CT 06/01/17 0000 Signed Impressions: Service Date/Time: Friday, June 02, 2017 00:33 - CONCLUSION: 1. 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 2. No large lymph nodes. 3. Enlarged prostate. 4. Diffuse atherosclerotic disease. Arvin Medina MD Objective Remarks GENERAL: This is a well-nourished, well-developed patient, repeats questions CARDIOVASCULAR: Regular rate and rhythm without murmurs, gallops, or rubs. RESPIRATORY: Clear to auscultation. Breath sounds equal bilaterally. No wheezes , rales, or rhonchi. GASTROINTESTINAL: Abdomen soft, non-tender, nondistended. Normal active bowel sounds MUSCULOSKELETAL: Extremities without clubbing, cyanosis, or edema. NEURO: Alert & Oriented x4 to person, place, time, situation. Moves all ext x4 A/P Problem List: (1) Hypoglycemia ICD Code: E16.2 - Hypoglycemia, unspecified (2) Anemia ICD Code: D64.9 - Anemia, unspecified (3) Cognitive impairment ICD Code: R41.89 - Other symptoms and signs involving cognitive functions and awareness (4) Mass of cecum ICD Code: K63.9 - Disease of intestine, unspecified Assessment and Plan (1) Hypoglycemia much Improved Previous hemoglobin A1c 7.0. follow closely with sliding scale only and ada diet (2) Anemia With some evidence of GI bleeding by rectal exam in the emergency room. Will hold aspirin on admission Hb 6.7 now 8.5 s/p 2 units PRBC. scheduled for endoscopy/colonoscopy sunday per gi. Pt is insistent that GI physician call his Physician in [place] on Sunday prior to procedure Continue Protonix po (3) Cognitive impairment Cognitive eval in progress per speech therapy (4) Mass of cecum Suspicious for malignancy Workup in progress Discharge Planning If there is no urgent surgical needs patient and family would like to pursue further aggressive treatment in their home town of [place] GI to discuss procedure w Physician in [place] prior to EGD/Colonoscopy on Sunday per pt's request Sobia Valentine MD Jun 03, 2017 09:46
[2017-06-03] MEDS ORDERED: PEG (High)/E-LYTE SOLN 4000 ML BTL PO SCH (11:45)
[2017-06-03 12:00] VITALS: BP 125/61; PULSE 59; RESP 18; TEMP 98; O2SAT 96
[2017-06-03 16:00] VITALS: BP 155/70; PULSE 62; RESP 16; TEMP 97.5; O2SAT 96
[2017-06-03] MEDS ORDERED: PEG (High)/E-LYTE SOLN 4000 ML BTL PO ONE (16:00)
[2017-06-03 20:00] VITALS: BP 172/85; PULSE 64; RESP 16; TEMP 96.7; O2SAT 98
[2017-06-03] MEDS: VALSARTAN 80 MG TAB PO SCH (21:00)
[2017-06-03] MEDS: ATORVASTATIN 40 MG TAB PO SCH (21:55)
[2017-06-04] VITALS: BP 145/67; PULSE 58; RESP 16; TEMP 97.7; O2SAT 96
[2017-06-04 01:49] LABS: CREATININE 0.9 MG/DL (0.60-1.30)
[2017-06-04 07:02] LABS: HEMOGLOBIN 8.8 GM/DL (13.0-17.0)
[2017-06-04 07:15] LABS: BICARBONATE 25.6 MEQ/L (21.0-32.0)
[2017-06-04 07:18] LABS: CREATININE 0.88 MG/DL (0.60-1.30)
--- NOTE | 2017-06-04 07:35 | GIPROC ---
[facility] [address] [place] [address], [id number] COLONOSCOPY PROCEDURE REPORT EXAM DATE: 06/04/2017 PATIENT NAME: Aman Thompson MR #: [id number] BIRTHDATE: 1930 ENDOSCOPIST: La Alexandra MD ORDER #: [id number] MUSIC INSTRUCTOR: Kellee Merchant and Candace Gonzales STATUS: inpatient INDICATIONS: The patient is a 87 yr old male here for a colonoscopy due to anemia, gi bleeding, abnormal ct PROCEDURE PERFORMED: Colonoscopy with biopsy MEDICATIONS: None and Per Anesthesia. PREP QUALITY: good PREP TYPE:Other: ESTIMATED BLOOD LOSS: None CONSENT: The patient understands the risks and benefits of the procedure and understands that these risks include, but are not limited to: sedation, allergic reaction, infection, perforation and/or bleeding. Alternative means of evaluation and treatment include, among others: physical exam, x-rays, and/or surgical intervention. The patient elects to proceed with this endoscopic procedure. medical equipment was checked for proper function. Hand hygiene and appropriate measures for infection prevention was taken. After the risks, benefits and alternatives of the procedure were thoroughly explained, Informed consent was verified, confirmed and timeout was successfully executed by the treatment team. A digital exam revealed an enlarged prostate The Pentax [id number] endoscope was introduced through the anus and advanced to the cecum, which was identified by both the appendix and ileocecal valve. The instrument was then slowly withdrawn as the colon was fully examined. COLON FINDINGS: Ulcerated mass cecum-very fraible -biopsies diverticulosis sigmoid,descending three diminutive polyps in rectum-cold biopsy with complete removal. Retroflexed views revealed internal hemorrhoids and Retroflexed views revealed small internal hemorrhoids The scope was then completely withdrawn from the patient and the procedure terminated. PROCEDURE WITHDRAWAL TIME:6minutes ADVERSE EVENTS: There were no complications. IMPRESSIONS: 1. Ulcerated mass cecum-very fraible -biopsies diverticulosis sigmoid,descending three diminutive polyps in rectum-cold biopsy with complete removal 2. Retroflexed views revealed internal hemorrhoids 3. Retroflexed views revealed small internal hemorrhoids 4. Revealed an enlarged prostate RECOMMENDATIONS: 1. Await biopsy results. Biopsy results will not be ready for 7-10 days. If you don't hear from us in two weeks, call our office for results. 2. Benefiber 2 tsp daily 3. Probiotics from any [employer] or health food store 4. Cea level general surgery consult RECALL: Return 1 year Colonoscopy La Alexandra MD eSigned: La Alexandra MD 06/04/2017 7:35 AM cc: PATIENT NAME: Aman Thompson MR#: [id number]
--- NOTE | 2017-06-04 07:37 | GIPROC ---
[facility] [address] [place] [address], [id number] EGD PROCEDURE REPORT EXAM DATE: 06/04/2017 PATIENT NAME: Aman Thompson MR #: [id number] BIRTHDATE: 1930 ATTENDING: La Alexandra MD ORDER #: [id number] LASER SET UP OPERATOR: Candace Gonzales and Kellee Merchant STATUS: inpatient INDICATIONS: The patient is a 87 yr old male here for an EGD due to anemia, gi bleeding PROCEDURE PERFORMED: EGD w/ biopsy MEDICATIONS: None and Per Anesthesia. TOPICAL ANESTHETIC: none CONSENT: The patient understands the risks and benefits of the procedure and understands that these risks include, but are not limited to: sedation, allergic reaction, infection, perforation and/or bleeding. Alternative means of evaluation and treatment include, among others: physical exam, x-rays, and/or surgical intervention. The patient elects to proceed with this endoscopic procedure. medical equipment was checked for proper function. Hand hygiene and appropriate measures for infection prevention was taken. After the risks, benefits and alternatives of the procedure were thoroughly explained, Informed consent was verified, confirmed and timeout was successfully executed by the treatment team. The patient was anesthetized with topical anesthesia and the [id number] (Pedi C) endoscope was introduced through the mouth and advanced to the second portion of the duodenum. Retroflexed views revealed a hiatal hernia The gastroscope was then slowly withdrawn and removed. Small duodenal ulcer clean base-biopsy gastritis antrum-biopsy irregular z line-biopsy. ADVERSE EVENTS: There were no complications. IMPRESSIONS: 1. Small duodenal ulcer clean base-biopsy gastritis antrum-biopsy irregular z line-biopsy 2. Retroflexed views revealed a hiatal hernia RECOMMENDATIONS: 1. Await biopsy results. Biopsy results will not be ready for 7-10 days. If you don't hear from us in two weeks, call our office for biopsy results. 2. Anti-reflux regimen 3. Continue PPI 4. Avoid NSAIDS PATIENT CONDITION: stable DISPOSITION: Inpatient REPEAT EXAM: Return 1 year EGD La Alexandra MD eSigned: La Alexandra MD 06/04/2017 7:37 AM cc: PATIENT NAME: mAan Thompson MR#: [id number]
[2017-06-04] MEDS: INSULIN ASPART SUPPLEMENTAL SCALE SQ SCH ×4 (08:00→21:00)
[2017-06-04] MEDS: TAMSULOSIN HCL 0.4 MG CAP PO SCH (08:42)
[2017-06-04] MEDS: PANTOPRAZOLE SOD 40 MG DELAYED RELEASE TAB PO SCH (08:42)
[2017-06-04 08:46] VITALS: BP 150/87; PULSE 56; RESP 16; TEMP 97; O2SAT 96
[2017-06-04] MEDS: SODIUM CHLORIDE 0.9% FLUSH 10 ML FLUSH IV FLUSH SCH ×2 (08:53→21:00)
--- NOTE | 2017-06-04 12:53 | HHI.PR ---
Subjective Remarks Patient was seen earlier this morning. Denies any abdominal pain. He is status post EGD/colonoscopy earlier today. Denies any nausea or vomiting. Tolerating his diet. Family at bedside Objective Vitals Vital Signs Date Time Temp Pulse Resp B/P (MAP) Pulse Ox O2 Delivery O2 Flow Rate FiO2 06/04/17 08:46 97.0 56 16 150/87 (108) 96 06/04/17 08:05 52 16 121/57 (78) 97 06/04/17 07:55 55 16 114/56 (75) 96 06/04/17 07:40 96.8 61 16 90/48 (62) 97 06/04/17 00:00 97.7 58 16 145/67 (93) 96 06/03/17 20:00 96.7 64 16 172/85 (114) 98 06/03/17 16:00 97.5 62 16 155/70 (98) 96 I/O 06/03/17 06/03/17 06/03/17 06/04/17 06/04/17 06/04/17 07:00 15:00 23:00 07:00 15:00 23:00 Intake Total 690 ml 0 ml 200 ml Balance 690 ml 0 ml 200 ml Intake Oral 690 ml 0 ml Other 200 ml # Voids 5 6 2 1 # Bowel Movements 1 Result Diagram: 06/04/17 0555 06/04/17 0555 Imaging Last Impressions Chest X-Ray 06/01/17 0845 Signed Impressions: Service Date/Time: Thursday, June 01, 2017 08:48 - CONCLUSION: The lungs are clear. Sarbjit Savage MD Abdomen/Pelvis CT 06/01/17 0000 Signed Impressions: Service Date/Time: Friday, June 02, 2017 00:33 - CONCLUSION: 1. 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 2. No large lymph nodes. 3. Enlarged prostate. 4. Diffuse atherosclerotic disease. Arvin Medina MD Objective Remarks GENERAL: This is a well-nourished, well-developed patient, repeats questions CARDIOVASCULAR: Regular rate and rhythm without murmurs RESPIRATORY: Clear to auscultation. Breath sounds equal bilaterally. No wheezes GASTROINTESTINAL: Abdomen soft, non-tender, nondistended. Normal active bowel sounds MUSCULOSKELETAL: Extremities without edema. NEURO: Alert & Oriented. Moves all ext x4 A/P Problem List: (1) Hypoglycemia ICD Code: E16.2 - Hypoglycemia, unspecified (2) Anemia ICD Code: D64.9 - Anemia, unspecified (3) Cognitive impairment ICD Code: R41.89 - Other symptoms and signs involving cognitive functions and awareness (4) Mass of cecum ICD Code: K63.9 - Disease of intestine, unspecified Assessment and Plan (1) Hypoglycemia much Improved Previous hemoglobin A1c 7.0. follow closely with sliding scale only and ada diet (2) Anemia With some evidence of GI bleeding by rectal exam in the emergency room. Will hold aspirin on admission Hb 6.7 now stable at 8.8 s/p 2 units PRBC. s/p endoscopy/colonoscopy, EGD showed small duodenal ulcer/gastritis/hiatal hernia/irregular Z line. Colonoscopy showed ulcerated mass in the cecum/ diverticulosis in the sigmoid colon/polyps in the rectum. He also had internal hemorrhoids. Gastroenterology consulted general surgery. Patient is agreeable to speak with the surgeon to know what the next step will be. He would like surgery to speak with his PCP Dr. Vital in [place] to update him of recommendations. Continue Protonix po (3) Cognitive impairment Cognitive eval in progress per speech therapy (4) Mass of cecum Confirmed on colonoscopy Discharge Planning General surgery has been consulted by GI. Awaiting their recommendations. Sobia Valentine MD Jun 04, 2017 12:53
[2017-06-04 13:30] VITALS: BP 128/51; PULSE 64; RESP 16; TEMP 97.1; O2SAT 95
[2017-06-04 16:00] VITALS: BP 139/56; PULSE 57; RESP 16; TEMP 98.3; O2SAT 96
[2017-06-04 20:00] VITALS: BP 134/62; PULSE 62; RESP 18; TEMP 96.1; O2SAT 96
[2017-06-04] MEDS: VALSARTAN 80 MG TAB PO SCH (21:00)
[2017-06-04] MEDS: ATORVASTATIN 40 MG TAB PO SCH (21:00)
--- NOTE | 2017-06-04 21:39 | MB ---
cc: Perfecto Esteban MD DATE: 06/04/2017 REQUESTING PHYSICIAN: Sobia Valentine MD REASON FOR CONSULTATION: Lower GI bleed, right colonic mass concerning for malignancy. HISTORY OF PRESENT ILLNESS: The patient is an 87-year-old male who chow in [place] from [place], who developed increasing fatigue over the last several days. The patient presented to the emergency department at [facility] with shortness of breath and after workup, was found to be profoundly anemic with a hemoglobin of 6. The patient underwent transfusion as well as further workup. Gastroenterology was consulted and a colonoscopy on 06/04/2017, did reveal a right-sided ulcerated mass, very friable in the cecum. CT scan of the abdomen and pelvis does show a 6 cm cecal mass, very suspicious for malignancy. No large lymph nodes. Laboratory values currently show hemoglobin 8.8. CEA is elevated at 12.5. The patient currently has no complaints and no pain or any other symptoms at this time. He denies actually seeing any blood per rectum at a time. He is able to tolerate a diet and denies any weight loss. REVIEW OF SYSTEMS: A 12-point review of systems was conducted with the patient and is negative except for the pertinent positives mentioned above in history of present illness. PAST MEDICAL HISTORY: 1. Coronary artery disease, status post stent placement, currently on aspirin for anticoagulation. 2. Hypertension. 3. Hyperlipidemia. 4. Diabetes. 5. BPH. PAST SURGICAL HISTORY: Cardiac stent several years ago. HOME MEDICATIONS: The patient takes tamsulosin, atorvastatin, valsartan, aspirin 81 mg, metformin, glipizide, VESIcare. ALLERGIES: NO KNOWN DRUG ALLERGIES. SOCIAL HISTORY: The patient has no history of alcohol, tobacco or drug use. FAMILY HISTORY Noncontributory. The patient denies any history of colon cancer in his family. PHYSICAL EXAMINATION: VITAL SIGNS: Temperature 98.3 degrees, heart rate 57, blood pressure 139/56. GENERAL: The patient is a thin , elderly male in no acute distress. He does not appear acute or chronically ill. HEENT: Head is normocephalic, atraumatic. Pupils are round, reactive to accommodation and light. Sclerae are anicteric. Oral cavity is clear. Airway is patent. NECK: Supple. No JVD. LUNGS: Breath sounds present bilaterally. Nonlabored breathing pattern. HEART: Regular rate and rhythm. PMI is nondisplaced. ABDOMEN: Normal bowel sounds in all 4 quadrants. No masses on palpation. No organomegaly. No ascites. Small umbilical hernia, reducible. BACK: No CVA tenderness. EXTREMITIES: No clubbing, cyanosis or edema. NEUROLOGIC: The patient is alert and oriented x 3. He has long-term memory loss, consistent with mild cognitive impairment. He has nonfocal peripheral exam. Cranial nerves 2-12 are grossly intact. 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 I had a long discussion with the patient as well as his daughter about the management options including medical stabilization and outpatient treatment versus continued inpatient therapy. I did recommend, due to the patient's age and medical issues and being off aspirin, that he would benefit from early operative intervention for colectomy for treatment of bleeding. I do feel it would be appropriate to perform oncologic resection of this patient if the patient is found to be potentially curable. The CT scan was reviewed by myself including the images and there is no obvious metastasis, possible cyst or abnormality of the dome of the liver, but no obvious metastatic disease at this time. We recommend the patient be transferred to [facility] as laparoscopic right hemicolectomy surgery cannot be performed at this facility due to the limited OR facility and capabilities. Possibly plan for operation as early as Sunday. The patient can continue a regular diet at this time. Thank you very much for this consultation. We will follow along with the patient. MD JACKELINE Morton/SONJA , 08:49 PM , 09:38 PM
[2017-06-05] VITALS: BP 136/60; PULSE 64; RESP 18; TEMP 97.1; O2SAT 97
[2017-06-05 07:46] LABS: HEMATOCRIT 28.8 % (39.0-51.0); HEMOGLOBIN 8.8 GM/DL (13.0-17.0)
[2017-06-05 08:00] VITALS: BP 143/69; PULSE 59; RESP 18; TEMP 98; O2SAT 97
[2017-06-05] MEDS: INSULIN ASPART SUPPLEMENTAL SCALE SQ SCH ×4 (08:00→21:00)
--- NOTE | 2017-06-05 08:31 | HHI.GIFU ---
GI Follow-up Note Consult Follow-up Subjective: Patient laying in bed comfortably, no new complaints except .Daughter bedside.Feeling better,no episodes of further bleeding.Colonoscopy done yesterday confirmed mass in cecum, most likely malignancy.Patient was seen by surgery, operation scheduled for tomorrow.Transfer to [facility] in process.Discussed findings with patient and daughter. Objective: PHYSICAL EXAMINATION: Vitals signs stable No fever Vital Signs Date Time Temp Pulse Resp B/P (MAP) Pulse Ox O2 Delivery O2 Flow Rate FiO2 06/05/17 08:00 98.0 59 18 143/69 (93) 97 No focal deficits; alert and oriented times three. Available Data (labs, X- Rays, Procedues) : Laboratory Tests Test 06/04/17 01:17 06/04/17 05:55 06/05/17 06:00 Creatinine 0.90 MG/DL 0.88 MG/DL Estimat Glomerular Filtration Rate 80 ML/MIN 82 ML/MIN Hemoglobin 8.8 GM/DL 8.8 GM/DL Hematocrit 28.0 % 28.8 % Blood Urea Nitrogen 9 MG/DL Random Glucose 100 MG/DL Calcium Level 8.0 MG/DL Sodium Level 140 MEQ/L Potassium Level 3.9 MEQ/L Chloride Level 107 MEQ/L Carbon Dioxide Level 25.6 MEQ/L Anion Gap 7 MEQ/L ASSESSMENT/PLAN: symptomatic anemia secondary gi bleeding gi bleeding secondary cecal mass, most likely colon cancer Recommendations surgery planned for tomorrow transfuse prn colon in 1 yr unless indicated otherwise family screening for colon cancer if dc fu gi in 1 month gi will sign off call us as needed It was a pleasure seeing Aman Thompson. Thank you for this consult. Entered by: La Sy MD Jun 05, 2017 08:31
[2017-06-05] MEDS: TAMSULOSIN HCL 0.4 MG CAP PO SCH (09:17)
[2017-06-05] MEDS: PANTOPRAZOLE SOD 40 MG DELAYED RELEASE TAB PO SCH (09:17)
[2017-06-05] MEDS: SODIUM CHLORIDE 0.9% FLUSH 10 ML FLUSH IV FLUSH SCH ×2 (09:17→21:00)
--- NOTE | 2017-06-05 11:27 | HHI.PR ---
Subjective Remarks Nursing denies any deterioration since last night. Patient has numerous questions about the anticipated surgical procedure, including length of surgery , length of recovery, exactly how much they are going to cut out, etc. is at the bedside. Objective Vital Signs Date Time Temp Pulse Resp B/P (MAP) Pulse Ox O2 Delivery O2 Flow Rate FiO2 06/05/17 08:00 98.0 59 18 143/69 (93) 97 06/05/17 00:00 97.1 64 18 136/60 (85) 97 06/04/17 20:00 96.1 62 18 134/62 (86) 96 06/04/17 16:00 98.3 57 16 139/56 (83) 96 06/04/17 13:30 97.1 64 16 128/51 (76) 95 I/O 06/04/17 06/04/17 06/04/17 06/05/17 06/05/17 06/05/17 07:00 15:00 23:00 07:00 15:00 23:00 Intake Total 0 ml 800 ml 300 ml Balance 0 ml 800 ml 300 ml Intake Oral 0 ml 600 ml 300 ml Other 200 ml # Voids 2 1 Result Diagram: 06/05/17 0600 06/04/17 0555 Objective Remarks Abdomen is soft, nontender, nondistended Patient sitting up in chair, asked me multiple questions repetitively about a possible surgical procedure. A/P Assessment and Plan Cecal mass -Likely the cause of the patient's bleeding, GI suspects cancer -hold aspirin, Anticipate surgical intervention in the next 24-48 hours, transferring patient to main hospital Anemia - stable now s/p 2 units PRBC, monitor -s/p endoscopy/colonoscopy, EGD showed small duodenal ulcer/gastritis/hiatal hernia/irregular Z line. Colonoscopy showed ulcerated mass in the cecum/ diverticulosis in the sigmoid colon/polyps in the rectum. He also had internal hemorrhoids. -Continue Protonix po Cognitive impairment Cognitive eval in progress per speech therapy I answered the patient's questions about his colonic mass to the best of my ability, instructed him and his to direct any surgical questions to the surgeon for more accurate answers. SCDs given pt has had recent bleeding and anticipated surgery Discharge Planning anticipate surg intervention Leo Perkins MD Jun 05, 2017 11:27
--- NOTE | 2017-06-05 14:22 | HHI.PR ---
cc: Perfecto Esteban MD Subjective Subjective Notes Patient seen at about 0730 Resting in bed Daughter at bedside Objective Vitals/I&O Vital Signs Date Time Temp Pulse Resp B/P (MAP) Pulse Ox O2 Delivery O2 Flow Rate FiO2 06/05/17 08:00 98.0 59 18 143/69 (93) 97 06/01/17 10:43 Nasal Cannula 2.00 Labs Laboratory Tests Test 06/05/17 06:00 Hemoglobin 8.8 Hematocrit 28.8 Cardiovascular: Regular Lungs: Clear Abdomen: Non-distended, Non-tender Extremities: No edema A/P Assessment and Plan 87 year old male with anemia; cecal mass -Regular diet; NPO after [place] -Will plan for OR tomorrow -Needs to be transferred to [facility] Lauren Grossman/Professional Nursing Tutor YASHIRA Jun 05, 2017 14:22
[2017-06-05 16:00] VITALS: BP 128/60; PULSE 65; RESP 18; TEMP 98.8; O2SAT 95
[2017-06-05 17:53] VITALS: BP 120/93; PULSE 62; RESP 18; TEMP 98; O2SAT 97
[2017-06-05 20:00] VITALS: BP 140/78; PULSE 60; RESP 18; TEMP 97.2; O2SAT 98
[2017-06-05] MEDS: VALSARTAN 80 MG TAB PO SCH (21:39)
[2017-06-05] MEDS: ATORVASTATIN 40 MG TAB PO SCH (21:39)
[2017-06-06] VITALS: BP 125/60; PULSE 56; RESP 17; TEMP 98; O2SAT 97
[2017-06-06] MEDS ORDERED: LACTATED RINGER'S 1000 ML IV PRN (03:15)
[2017-06-06] MEDS ORDERED: CHLORHEXIDINE GLUCONATE 2 % 1 PACK (2 CLOTHS) TOPICAL PRN (03:15)
[2017-06-06] MEDS ORDERED: POVIDONE IODINE 5% (ANTISEPSIS KIT) 4 APPLICATIONS EACH NARE PRN (03:15)
[2017-06-06 08:00] VITALS: BP 115/55; PULSE 55; RESP 17; TEMP 97.4; O2SAT 96
[2017-06-06] MEDS: INSULIN ASPART SUPPLEMENTAL SCALE SQ SCH ×4 (08:00→19:49)
[2017-06-06] MEDS: SODIUM CHLORIDE 0.9% FLUSH 10 ML FLUSH IV FLUSH SCH ×2 (09:00→19:48)
[2017-06-06] MEDS: PANTOPRAZOLE SOD 40 MG DELAYED RELEASE TAB PO SCH (09:09)
[2017-06-06] MEDS: TAMSULOSIN HCL 0.4 MG CAP PO SCH (09:09)
--- NOTE | 2017-06-06 10:51 | HHI.PR ---
Subjective Remarks The patient had questions about surgery. He had no acute complaints. He denied abdominal pain or nausea and vomiting. Discussed with family at the bedside and nursing. Objective Vitals Vital Signs Date Time Temp Pulse Resp B/P (MAP) Pulse Ox O2 Delivery O2 Flow Rate FiO2 06/06/17 08:00 97.4 55 17 115/55 (75) 96 06/06/17 00:00 98.0 56 17 125/60 (81) 97 06/05/17 20:00 97.2 60 18 140/78 (98) 98 06/05/17 17:53 98.0 62 18 120/93 (102) 97 06/05/17 16:00 98.8 65 18 128/60 (82) 95 I/O 06/05/17 06/05/17 06/05/17 06/06/17 06/06/17 06/06/17 07:00 15:00 23:00 07:00 15:00 23:00 Intake Total 1050 ml 580 ml Balance 1050 ml 580 ml Intake Oral 1050 ml 580 ml # Voids 3 3 # Bowel Movements 0 Result Diagram: 06/06/17 0646 06/04/17 0555 Imaging Last Impressions Chest X-Ray 06/01/17 0845 Signed Impressions: Service Date/Time: Thursday, June 01, 2017 08:48 - CONCLUSION: The lungs are clear. Sarbjit Savage MD Abdomen/Pelvis CT 06/01/17 0000 Signed Impressions: Service Date/Time: Friday, June 02, 2017 00:33 - CONCLUSION: 1. 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 2. No large lymph nodes. 3. Enlarged prostate. 4. Diffuse atherosclerotic disease. Arvin Medina MD Objective Remarks GENERAL: This is a well-nourished, well-developed patient, no distress. HEENT: NC, AT. CARDIOVASCULAR: Regular rate and rhythm without murmurs, gallops, or rubs. RESPIRATORY: Clear to auscultation. Breath sounds equal bilaterally. No wheezes , rales, or rhonchi. GASTROINTESTINAL: Abdomen soft, non-tender, nondistended. Normoactive bowel sounds. MUSCULOSKELETAL: Extremities without clubbing, cyanosis, or edema. NEURO: Alert & Oriented x4 to person, place, time, situation. Moves all ext x4. PSYCH: Mood and affect appropriate. Medications and IVs Current Medications Medications (Trade) Dose Ordered Sig/Quan Route Start Time Stop Time Status Last Admin (D50w (Vial) Inj) 50 ml UNSCH PRN IV PUSH 06/01/17 11:45 (Glucagon Inj) 1 mg STAT PRN IM 06/01/17 11:45 (Lipitor) 40 mg HS PO 06/01/17 21:00 06/05/17 21:39 (Flomax) 0.4 mg DAILY PO 06/01/17 12:00 06/06/17 09:09 (Diovan) 320 mg HS PO 06/01/17 21:00 06/05/17 21:39 (NovoLOG SUPPLEMENTAL SCALE) 1 ACHS SLIDING SCALE SQ 06/01/17 12:00 06/05/17 21:00 (NS Flush) 2 ml UNSCH PRN IV FLUSH 06/01/17 11:45 (NS Flush) 2 ml BID IV FLUSH 06/01/17 21:00 06/05/17 21:00 (Tylenol) 650 mg Q4H PRN PO 06/01/17 11:45 (Zofran Inj) 4 mg Q6H PRN IVP 06/01/17 11:45 (Narcan Inj) 0.4 mg UNSCH PRN IV PUSH 06/01/17 11:45 (Senokot) 17.2 mg Q12H PRN PO 06/01/17 11:45 (Protonix) 40 mg DAILY PO 06/03/17 09:00 06/06/17 09:09 Lactated Ringer's 1,000 ml @ 30 mls/hr Q24H PRN IV 06/06/17 03:15 06/09/17 03:14 (Betadine 5% Antisepsis Kit) 1 applic SHANK CEMENTER HAND PRN EACH NARE 06/06/17 03:15 06/09/17 03:14 (Chlorhexidine 2% Cloth) 3 pack SHANK CEMENTER HAND PRN TOPICAL 06/06/17 03:15 06/09/17 03:14 A/P Problem List: (1) Hypoglycemia ICD Code: E16.2 - Hypoglycemia, unspecified (2) Anemia ICD Code: D64.9 - Anemia, unspecified (3) Cognitive impairment ICD Code: R41.89 - Other symptoms and signs involving cognitive functions and awareness (4) Mass of cecum ICD Code: K63.9 - Disease of intestine, unspecified Assessment and Plan Cecal mass Likely the cause of the patient's bleeding. Suspicious for malignancy. Colorectal surgery consult appreciated. - hold aspirin. - to the OR 06/06. Anemia Stable now s/p 2 units PRBC. S/p endoscopy/colonoscopy, EGD showed small duodenal ulcer/gastritis/hiatal hernia/irregular Z line. Colonoscopy showed ulcerated mass in the cecum/diverticulosis in the sigmoid colon/polyps in the rectum. He also had internal hemorrhoids. - Continue Protonix po. - work-up as above. Hypoglycemia The pt presented to the hospital with a hypoglycemic episode. - hold oral agents. - check a hgbA1c. - insulin sliding scale with coverage. PPx: SCDs Discharge Planning Await surgery Yoan Martell DO Jun 06, 2017 10:51
[2017-06-06] MEDS ORDERED: BUPIVACAINE/EPINEPHRINE 0.25% 50 ML VIAL ONE (11:30)
[2017-06-06] MEDS ORDERED: ePHEDrine/NS 25 MG/5 ML SYRINGE IV ONE (12:00)
[2017-06-06] MEDS ORDERED: LIDOCAINE HCL 1% PF 5 ML SYRINGE OTHER ONE (12:00)
[2017-06-06] MEDS ORDERED: ROCURONIUM INJ 50 MG/5 ML SYRINGE IV PUSH ONE (12:00)
[2017-06-06] MEDS ORDERED: NEOSTIGMINE 5 MG/5 ML SYRINGE IV PUSH ONE (12:00)
[2017-06-06] MEDS ORDERED: NORMOSOL R INJ 1,000 ML IV ONE (12:00)
[2017-06-06] MEDS ORDERED: PROPOFOL 200 MG/20 ML AMP IV ONE (12:00)
[2017-06-06] MEDS ORDERED: GLYCOPYRROLATE 1 MG/5 ML SYRINGE IV PUSH ONE (12:00)
[2017-06-06] MEDS ORDERED: ONDANSETRON HCL 4 MG/2 ML VIAL IV ONE (12:00)
[2017-06-06] MEDS ORDERED: ceFAZolin INJ 1,000 MG VIAL ONE (12:34)
[2017-06-06] MEDS ORDERED: metroNIDAZOLE 500 MG INJ 100 ML IV ONE (12:35)
[2017-06-06] MEDS ORDERED: MORPHINE SULFATE 2 MG/ML SYRINGE IV PUSH PRN (14:45)
[2017-06-06] MEDS ORDERED: ACETAMINOPHEN/HYDROcodone 325 MG/5 MG TAB PO PRN (14:45)
[2017-06-06] MEDS ORDERED: ONDANSETRON HCL 4 MG/2 ML VIAL IV PUSH PRN (14:45)
[2017-06-06] MEDS ORDERED: BENZOCAINE 20% ORAL SPR 60 ML CAN MT PRN (14:45)
[2017-06-06] MEDS ORDERED: DO NOT ADM ANY ANTICOAGULANT DRUGS PRN (15:12)
[2017-06-06] MEDS ORDERED: *morphine SULFATE 4 MG/ML PERIprocedure ONLY ONE ×2 (15:42→16:16)
[2017-06-06] MEDS: ACETAMINOPHEN 1000 MG/100 ML 100 ML IV SCH ×2 (16:10→19:46)
[2017-06-06 17:11] LABS: HEMOGLOBIN A1C 6.7 % (4.3-6.0)
[2017-06-06 17:30] VITALS: BP 128/60; PULSE 59; RESP 17; TEMP 97; O2SAT 99
[2017-06-06] MEDS: VALSARTAN 80 MG TAB PO SCH (19:46)
[2017-06-06] MEDS: ATORVASTATIN 40 MG TAB PO SCH (19:47)
[2017-06-06] MEDS: metroNIDAZOLE 500 MG INJ 100 ML IV SCH (19:47)
[2017-06-06 20:00] VITALS: BP 140/62; PULSE 72; RESP 17; TEMP 97.1; O2SAT 96
[2017-06-07] VITALS (7 sets, daily range): BP systolic 122–142; BP diastolic 56–67; PULSE 56–74; RESP 16–18; TEMP 97.3–98; O2SAT 94–99
[2017-06-07] MEDS: oxyCODONE/ACETAMINOPHEN 5 MG/325 MG TAB PO PRN ×2 (01:15→09:06)
[2017-06-07] MEDS: ACETAMINOPHEN 1000 MG/100 ML 100 ML IV SCH ×2 (04:25→10:25)
[2017-06-07] MEDS: metroNIDAZOLE 500 MG INJ 100 ML IV SCH ×2 (04:27→14:55)
[2017-06-07] MEDS: diphenhydrAMINE HCL 25 MG CAP PO PRN ×2 (04:43→11:15)
[2017-06-07 06:06] LABS: BASOPHIL # 0.1 TH/MM3 (0-0.2); BASOPHIL % 0.3 % (0.0-2.0); HEMATOCRIT 24.8 % (39.0-51.0); LYMPH % 5.3 % (9.0-44.0); MEAN CELL VOLUME 80.9 FL (80.0-100.0); MEAN CORPUSCULAR HEMOGLOBIN 26.3 PG (27.0-34.0); MEAN CORPUSCULAR HGB CONC 32.5 % (32.0-36.0); MEAN PLATELET VOLUME 8.5 FL (7.0-11.0); MONO % 5.5 % (0.0-8.0); NEUT % 88.9 % (16.0-70.0); PLATELET COUNT 298 TH/MM3 (150-450); RED BLOOD COUNT 3.06 MIL/MM3 (4.50-5.90); RED CELL DISTRIBUTION WIDTH 18.1 % (11.6-17.2)
[2017-06-07 06:37] LABS: BICARBONATE 24.8 MEQ/L (21.0-32.0); CALCIUM 7.7 MG/DL (8.5-10.1); CREATININE 1.14 MG/DL (0.60-1.30); MAGNESIUM 1.6 MG/DL (1.5-2.5)
[2017-06-07] MEDS: SODIUM CHLORIDE 0.9% FLUSH 10 ML FLUSH IV FLUSH SCH ×2 (09:00→20:48)
[2017-06-07] MEDS: TAMSULOSIN HCL 0.4 MG CAP PO SCH (09:06)
[2017-06-07] MEDS: PANTOPRAZOLE SOD 40 MG DELAYED RELEASE TAB PO SCH (09:06)
[2017-06-07] MEDS: INSULIN ASPART SUPPLEMENTAL SCALE SQ SCH ×4 (09:07→20:40)
--- NOTE | 2017-06-07 10:08 | HHI.PR ---
Subjective Subjective Notes Resting in bed Daughter at bedside Patient reports he is feeling pretty well today Likes the clear liquids SHANE Reyna at bedside Objective Vitals/I&O Vital Signs Date Time Temp Pulse Resp B/P (MAP) Pulse Ox O2 Delivery O2 Flow Rate FiO2 06/07/17 08:00 97.5 62 18 138/63 (88) 97 06/06/17 16:30 Nasal Cannula 2 Labs Laboratory Tests Test 06/07/17 05:08 White Blood Count 18.0 Red Blood Count 3.06 Hemoglobin 8.0 Hematocrit 24.8 Mean Corpuscular Volume 80.9 Mean Corpuscular Hemoglobin 26.3 Mean Corpuscular Hemoglobin Concent 32.5 Red Cell Distribution Width 18.1 Platelet Count 298 Mean Platelet Volume 8.5 Neutrophils (%) (Auto) 88.9 Lymphocytes (%) (Auto) 5.3 Monocytes (%) (Auto) 5.5 Eosinophils (%) (Auto) 0.0 Basophils (%) (Auto) 0.3 Neutrophils # (Auto) 16.0 Lymphocytes # (Auto) 1.0 Monocytes # (Auto) 1.0 Eosinophils # (Auto) 0.0 Basophils # (Auto) 0.1 CBC Comment DIFF FINAL Differential Comment Blood Urea Nitrogen 16 Creatinine 1.14 Random Glucose 283 Calcium Level 7.7 Magnesium Level 1.6 Sodium Level 135 Potassium Level 4.1 Chloride Level 103 Carbon Dioxide Level 24.8 Anion Gap 7 Estimat Glomerular Filtration Rate 61 Cardiovascular: Regular Lungs: Clear Abdomen: Other (incisions c/d/i--- Dermabond in place; abdomen mildly tender at incisions. ) Extremities: No edema A/P Assessment and Plan 87 year old male with anemia; cecal mass -POD1 lap assisted RIGHT hemicolectomy -Await pathology -Clear liquids -PT -IS -Monitor Hmg -OOB as tolerated today Attending Statement The exam, history, and the medical decision-making described in the above note were completed with the assistance of the mid-level provider. I reviewed and agree with the findings presented. I attest that I had a [id number] encounter with the patient on the same day, and personally performed and documented my assessment and findings in the medical record. Patient s/p lap assisted right hemicolectomy pain controlled AF, VSS Abdomen soft, non-distended, post-op tenderness continue supportive care, await bowel function Lauren Grossman/First Alexei AC Jun 07, 2017 10:08 Perfecto Esteban MD Jun 12, 2017 10:36
[2017-06-07] MEDS ORDERED: SODIUM CHLOR 0.9% 1000 ML INJ 1,000 ML IV SCH (13:00)
[2017-06-07] MEDS: ENOXAPARIN SODIUM 30 MG/0.3 ML SYRINGE SQ SCH (14:55)
[2017-06-07] MEDS ORDERED: diphenhydrAMINE HCL 2%/ZINC ACETATE 0.1% CREAM 30 APPLIC/30 GM TUBE TOPICAL PRN (15:30)
--- NOTE | 2017-06-07 16:46 | HHI.PR ---
Subjective Remarks The patient was resting comfortably in bed. His family was at the bedside and their questions were answered. The patient states that he has chronic itching around the abdomen and was wondering how to alleviate that. His family was concerned about his memory and were wondering about how to work that up. He has been tolerating a clear liquid diet. Discussed with nursing. Objective Vitals Vital Signs Date Time Temp Pulse Resp B/P (MAP) Pulse Ox O2 Delivery O2 Flow Rate FiO2 06/07/17 12:00 97.3 56 17 126/61 (82) 95 06/07/17 11:41 94 21 06/07/17 08:00 97.5 62 18 138/63 (88) 97 06/07/17 04:00 97.8 68 17 122/56 (78) 94 06/07/17 02:28 20 06/07/17 00:00 98.0 74 17 135/67 (89) 99 06/06/17 20:20 20 06/06/17 20:00 97.1 72 17 140/62 (88) 96 06/06/17 17:30 97.0 59 17 128/60 (82) 99 I/O 06/06/17 06/06/17 06/06/17 06/07/17 06/07/17 06/07/17 07:00 15:00 23:00 07:00 15:00 23:00 Intake Total 580 ml 800 ml 500 ml 200 ml 100 ml Output Total 270 ml 800 ml Balance 580 ml 530 ml -300 ml 200 ml 100 ml Intake Oral 580 ml 500 ml IV Total 200 ml 100 ml Other 800 ml Output Urine Total 250 ml 800 ml Estimated Blood Loss 20 ml # Voids 3 3 # Bowel Movements 1 Result Diagram: 06/07/17 0508 06/07/17 0508 Imaging Last Impressions Chest X-Ray 06/01/17 0845 Signed Impressions: Service Date/Time: Thursday, June 01, 2017 08:48 - CONCLUSION: The lungs are clear. Sarbjit Savage MD Abdomen/Pelvis CT 06/01/17 0000 Signed Impressions: Service Date/Time: Friday, June 02, 2017 00:33 - CONCLUSION: 1. 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 2. No large lymph nodes. 3. Enlarged prostate. 4. Diffuse atherosclerotic disease. Arvin Medina MD Objective Remarks GENERAL: This is a well-nourished, well-developed patient, no distress. HEENT: NC, AT. CARDIOVASCULAR: Regular rate and rhythm without murmurs, gallops, or rubs. RESPIRATORY: Clear to auscultation. Breath sounds equal bilaterally. No wheezes , rales, or rhonchi. GASTROINTESTINAL: Abdomen soft, non-tender, nondistended. Normoactive bowel sounds. MUSCULOSKELETAL: Extremities without clubbing, cyanosis, or edema. NEURO: Alert & Oriented x4 to person, place, time, situation. Moves all ext x4. PSYCH: Mood and affect appropriate. Medications and IVs Current Medications Medications (Trade) Dose Ordered Sig/Quan Route Start Time Stop Time Status Last Admin (D50w (Vial) Inj) 50 ml UNSCH PRN IV PUSH 06/01/17 11:45 (Glucagon Inj) 1 mg STAT PRN IM 06/01/17 11:45 (Lipitor) 40 mg HS PO 06/01/17 21:00 06/06/17 19:47 (Flomax) 0.4 mg DAILY PO 06/01/17 12:00 06/07/17 09:06 (Diovan) 320 mg HS PO 06/01/17 21:00 06/06/17 19:46 (NovoLOG SUPPLEMENTAL SCALE) 1 ACHS SLIDING SCALE SQ 06/01/17 12:00 06/07/17 11:47 (NS Flush) 2 ml UNSCH PRN IV FLUSH 06/01/17 11:45 (NS Flush) 2 ml BID IV FLUSH 06/01/17 21:00 06/07/17 09:00 (Tylenol) 650 mg Q4H PRN PO 06/01/17 11:45 (Narcan Inj) 0.4 mg UNSCH PRN IV PUSH 06/01/17 11:45 (Senokot) 17.2 mg Q12H PRN PO 06/01/17 11:45 (Protonix) 40 mg DAILY PO 06/03/17 09:00 06/07/17 09:06 Lactated Ringer's 1,000 ml @ 30 mls/hr Q24H PRN IV 06/06/17 03:15 06/09/17 03:14 (Betadine 5% Antisepsis Kit) 1 applic RESOURCING ADVISOR PRN EACH NARE 06/06/17 03:15 06/09/17 03:14 (Chlorhexidine 2% Cloth) 3 pack RESOURCING ADVISOR PRN TOPICAL 06/06/17 03:15 06/09/17 03:14 (Zofran Inj) 4 mg Q6H PRN IV PUSH 06/06/17 14:45 06/06/17 17:32 (Percocet 5-325 Mg) 1 tab Q6H PRN PO 06/06/17 14:45 06/07/17 09:06 (Morphine Inj) 2 mg Q3H PRN IV PUSH 06/06/17 14:45 (Lovenox Inj) 30 mg Q24H SQ 06/07/17 14:00 06/07/17 14:55 (Entereg) 12 mg BID PO 06/07/17 21:00 06/14/17 09:01 (Benadryl) 25 mg Q6H PRN PO 06/06/17 20:45 06/07/17 11:15 Sodium Chloride 1,000 ml @ 42 mls/hr [id number] IV 06/07/17 13:00 06/07/17 13:00 (Benadryl 2% Cream) 1 applic TID PRN TOPICAL 06/07/17 15:30 A/P Problem List: (1) Hypoglycemia ICD Code: E16.2 - Hypoglycemia, unspecified (2) Anemia ICD Code: D64.9 - Anemia, unspecified (3) Cognitive impairment ICD Code: R41.89 - Other symptoms and signs involving cognitive functions and awareness (4) Mass of cecum ICD Code: K63.9 - Disease of intestine, unspecified Assessment and Plan Cecal mass Likely the cause of the patient's bleeding. Suspicious for malignancy. Surgery consult appreciated. S/p right hemicolectomy 06/06. - hold aspirin. - diet per surgery. Currently on clears. - rehab efforts. - IS. - pain control. Anemia Stable now s/p 2 units PRBC. S/p endoscopy/colonoscopy, EGD showed small duodenal ulcer/gastritis/hiatal hernia/irregular Z line. Colonoscopy showed ulcerated mass in the cecum/diverticulosis in the sigmoid colon/polyps in the rectum. He also had internal hemorrhoids. - Continue Protonix po. - work-up as above. Hypoglycemia The pt presented to the hospital with a hypoglycemic episode. A1c 6.7%. - hold oral agents. On metformin 1000 mg BID at home. - insulin sliding scale with coverage. Itching Chronic problem. Has seen a facility manager in the past and was diagnosed with dermatitis. - Benadryl as needed. - outpt follow-up. Confusion Likely underlying dementia. - will refer to neurology upon discharge. PPx: Yoan Fleming DO Jun 07, 2017 16:46
--- NOTE | 2017-06-07 19:02 | MP ---
cc: Perfecto Esteban MD DATE OF OPERATION: 06/06/2017 DATE OF OPERATION: 06/06/2017. PREOPERATIVE DIAGNOSES: 1. Lower gastrointestinal bleed. 2. Right colon mass suspicious for adenocarcinoma. POSTOPERATIVE DIAGNOSES: 1. Lower gastrointestinal bleed. 2. Right colon and mass suspicious for adenocarcinoma. PROCEDURE PERFORMED: 1. Laparoscopic extended right hemicolectomy. 2. Primary repair of umbilical hernia (2 cm chronic non-incarcerated). ATTENDING SURGEON: Perfecto Esteban MD INSTITUTION DIRECTOR: Staff. ANESTHESIA: General and local anesthetic. BLOOD LOSS: Less than 25 mL. COMPLICATIONS: None. FINDINGS: Large bulky right colonic mass in the ascending colon just distal to the cecum proper, which appeared to be full thickness and visible on the outside of the specimen invading omentum and part of the proximal transverse colon. This necessitated extended right hemicolectomy for removal of the ascending and proximal transverse colon. INDICATION FOR PROCEDURE: The patient is an 87-year-old male who presented to [facility] with weakness and anemia. Workup revealed a lower gastrointestinal bleeding source at a large right colonic mass suspicious for adenocarcinoma. The patient had staging CT scan which was negative for metastatic disease and did show a large bulky tumor in the right colon. Surgical Oncology was consulted for evaluation and after discussion with the patient, as well as the patient's daughter and about the risks, benefits and alternatives to more urgent operative intervention due to bleeding, agreed to undergo the procedure. Again, risks, benefits, and alternatives were discussed with the patient and the family about control of lower GI bleed as well as treatment of his potential malignancy. Although pathology was pending, they agreed to undergo the procedure due to the extremely high likelihood of malignancy as well as this lesion being a source of bleeding. We felt that the patient would benefit from early operative intervention and we proceeded to the operating room. DESCRIPTION OF PROCEDURE: The patient was taken to the operating room, placed in supine position, and placed under endotracheal intubation. The patient's abdomen was shaved, prepped and draped in sterile fashion. Timeout was performed. The abdomen was entered through a Tomas-type technique. We used the patient's umbilical defect of the umbilicus was approximately 2 cm superior. This was an umbilical hernia primarily which was nonchronically fat incarcerated, nonacute incarcerated and was symptomatic, but not part of the patient's acute process. We opened the hernia sac and placed a 10-12 mm trocar through this defect under direct visualization. We insufflated the abdomen and surveyed the abdomen with a 5 mm 30-degree camera with no evidence of any complication from our entry. We then placed a 5 mm port in the epigastric area and a 5 mm port in the suprapubic area just to the right of the midline, again under direct visualization of the laparoscope. Local anesthetic was used at all port sites. Once we had done this, we rotated the bed towards ia with the right side out to expose the right colon. We did carefully viewed the abdomen throughout as a diagnostic and staging laparoscopy and there was no evidence of any metastatic disease. We paid particular attention to the liver without any evidence for metastatic disease or any pathology. The tumor was actually visible grossly in the right colon. It was invading through the right colon and had adhered to the very proximal transverse colon and looked like it was actually invading into the colon as this was densely attached at this point. There was also omentum densely attached at this point as well. We had to mobilize the white line of Toldt and took down some of these omentum attachments to mobilize the right colo. We retracted up towards the abdominal wall, giving a stretch on the right mesentery. We were able to identify the ileocolic vessels quite easy and dissected around these with the laparoscopic LigaSure device. We then used a white load on the GI Galva 60 stapler to divide the artery and vein. This was done successfully with getting a large lymph node packet with excellent hemostasis. We used the laparoscopic LigaSure to continue to dissect down towards the terminal ileum, as well as open up the mesentery through the window near the duodenum. The duodenum was again seen and exposed and we dissected the hepatic flexure off of the duodenum and came across to the mid transverse colon. Once we had very significant floppy right colon immobilization at this time, I felt that if we could extracorporealate the tumor, we could perform a resection anastomosis through a hand port at this time. We did place a small 5 mm hand port in the right upper quadrant at this time. This was done with muscle splitting by moving the rectus laterally and placing the port through the medial aspect of the anterior and posterior rectus sheath. We then extracorporealated the tumor and the entire right colon and most of the transverse colon. We divided the terminal ileum with a blue load on the Galva stapler. We divided the right branch of the middle colic artery and veins vascular bundle with a white load on the Galva stapler. We used the blue load on the Galva stapler to divide the transverse colon distal to the portion of likely invasion. This completely the specimen from the patient and was passed off for permanent processing. At this point in time, we performed a [id number] functional end-to-end anastomosis with the distal ileum with the mid transverse colon using the blue load on the Galva 60 stapler. We closed the stapler defect with a second blue load on the Galva stapler and oversewed each proximal distal staple line ends with 3-0 silk sutures. This was widely patent without bleeding and without complication with no leak and all viable pink tissue. This was placed back down into the abdomen and laid in normal anatomic position in the right upper quadrant. We then removed the hand port from the right upper quadrant. We closed the posterior rectus sheath with a 0 Vicryl suture and closed the anterior rectus sheath with 0 Vicryl sutures. We at this point in time reinsufflated the abdomen and surveyed the abdomen. We had everything laid in anatomic position with the anastomosis in the right upper quadrant and the small bowel laid fairly normally in the right side of the abdomen as it went proximally. There was no twisting. We did do some suction irrigation a little bit in the right upper quadrant just to remove some small amount of bloody fluid. We again had excellent hemostasis. We then at this point removed ports under visualization of the laparoscope and expressed pneumoperitoneum. We did close the hernia and repair this by completely resecting the sac of the umbilical hernia and closing this primarily with interrupted 0 Vicryl sutures. We then closed the skin of all port sites as well as the hand port as well as the umbilical hernia repair with 4-0 Monocryl and Dermabond. The patient was discontinued from anesthesia, extubated and taken to the PACU in stable condition. The patient tolerated the procedure well. No apparent complications. All counts were correct. I was present and scrubbed for the entire procedure. MD JACKELINE Morton/ROLANDO , 05:16 PM , 07:01 PM
[2017-06-07] MEDS: ALVIMOPAN 12 MG CAPSULE PO SCH (20:39)
[2017-06-07] MEDS: VALSARTAN 80 MG TAB PO SCH (20:39)
[2017-06-07] MEDS: ATORVASTATIN 40 MG TAB PO SCH (20:40)
[2017-06-08] VITALS: BP 132/62; PULSE 64; RESP 16; TEMP 98.9; O2SAT 94
[2017-06-08 08:00] VITALS: BP 152/67; PULSE 64; RESP 18; TEMP 98; O2SAT 93
[2017-06-08] MEDS: INSULIN ASPART SUPPLEMENTAL SCALE SQ SCH ×4 (08:00→22:26)
[2017-06-08 08:28] LABS: HEMATOCRIT 23.6 % (39.0-51.0); HEMOGLOBIN 7.7 GM/DL (13.0-17.0); MEAN CELL VOLUME 81.9 FL (80.0-100.0); MEAN CORPUSCULAR HEMOGLOBIN 26.8 PG (27.0-34.0); MEAN CORPUSCULAR HGB CONC 32.8 % (32.0-36.0); MEAN PLATELET VOLUME 8.9 FL (7.0-11.0); PLATELET COUNT 257 TH/MM3 (150-450); RED BLOOD COUNT 2.88 MIL/MM3 (4.50-5.90); RED CELL DISTRIBUTION WIDTH 18.1 % (11.6-17.2); WHITE BLOOD COUNT 11.3 TH/MM3 (4.0-11.0)
[2017-06-08 08:41] LABS: CALCIUM 7.7 MG/DL (8.5-10.1); CREATININE 0.9 MG/DL (0.60-1.30); MAGNESIUM 1.8 MG/DL (1.5-2.5)
[2017-06-08] MEDS: PANTOPRAZOLE SOD 40 MG DELAYED RELEASE TAB PO SCH (08:42)
[2017-06-08] MEDS: TAMSULOSIN HCL 0.4 MG CAP PO SCH (08:42)
[2017-06-08] MEDS: ALVIMOPAN 12 MG CAPSULE PO SCH ×2 (08:42→22:23)
[2017-06-08] MEDS: diphenhydrAMINE HCL 25 MG CAP PO PRN (08:43)
[2017-06-08] MEDS: SODIUM CHLORIDE 0.9% FLUSH 10 ML FLUSH IV FLUSH SCH ×2 (08:44→22:22)
[2017-06-08 12:00] VITALS: BP 147/64; PULSE 71; RESP 18; TEMP 98; O2SAT 95
--- NOTE | 2017-06-08 12:21 | HHI.PR ---
cc: Perfecto Esteban MD Subjective Subjective Notes Up to chair eating lunch Family at bedside Patient walked down to the window and back today with Objective Vitals/I&O Vital Signs Date Time Temp Pulse Resp B/P (MAP) Pulse Ox O2 Delivery O2 Flow Rate FiO2 06/08/17 08:00 98.0 64 18 152/67 (95) 93 06/07/17 11:41 21 06/06/17 16:30 Nasal Cannula 2 Labs Laboratory Tests Test 06/08/17 06:08 White Blood Count 11.3 Red Blood Count 2.88 Hemoglobin 7.7 Hematocrit 23.6 Mean Corpuscular Volume 81.9 Mean Corpuscular Hemoglobin 26.8 Mean Corpuscular Hemoglobin Concent 32.8 Red Cell Distribution Width 18.1 Platelet Count 257 Mean Platelet Volume 8.9 Blood Urea Nitrogen 11 Creatinine 0.90 Random Glucose 134 Calcium Level 7.7 Magnesium Level 1.8 Sodium Level 136 Potassium Level 4.0 Chloride Level 105 Carbon Dioxide Level 24.0 Anion Gap 7 Estimat Glomerular Filtration Rate 80 Cardiovascular: Regular Lungs: Clear Abdomen: Other (incisions c/d/i; mild tenderness ) Extremities: No edema A/P Assessment and Plan 87 year old male with anemia; cecal mass -POD2 lap assisted RIGHT hemicolectomy -Await pathology -Clear liquids -PT -IS -DC fluids -Monitor Hmg ---7.7 today -OOB as tolerated today Attending Statement The exam, history, and the medical decision-making described in the above note were completed with the assistance of the mid-level provider. I reviewed and agree with the findings presented. I attest that I had a [id number] encounter with the patient on the same day, and personally performed and documented my assessment and findings in the medical record. pain controlled, stable after lap right wesley incision clean, intact await bowel function, clear liquids Lauren Grossman PANEL EDGE PAINTER/Early Childhood PANEL EDGE PAINTER Jun 08, 2017 12:20 Perfecto Esteban MD Jun 14, 2017 13:41
--- NOTE | 2017-06-08 15:43 | HHI.PR ---
Subjective Remarks The patient was resting comfortably in bed. He says the itching is better. He still says he has abdominal soreness. He has been ambulating. His family says he has been passing gas. Discussed with surgery and nursing. Objective Vitals Vital Signs Date Time Temp Pulse Resp B/P (MAP) Pulse Ox O2 Delivery O2 Flow Rate FiO2 06/08/17 12:00 98.0 71 18 147/64 (91) 95 06/08/17 08:00 98.0 64 18 152/67 (95) 93 06/08/17 00:00 98.9 64 16 132/62 (85) 94 06/07/17 20:00 98.0 61 16 139/63 (88) 96 06/07/17 16:00 97.3 57 17 142/61 (88) 95 I/O 06/07/17 06/07/17 06/07/17 06/08/17 06/08/17 06/08/17 06:59 14:59 22:59 06:59 14:59 22:59 Intake Total 500 ml 200 ml 700 ml Output Total 800 ml 210 ml 300 ml Balance -300 ml 200 ml 490 ml -300 ml Intake Oral 500 ml 600 ml IV Total 200 ml 100 ml Output Urine Total 800 ml 210 ml 300 ml # Voids 1 # Bowel Movements 0 Result Diagram: 06/08/17 0608 06/08/17 0608 Imaging Last Impressions Chest X-Ray 06/01/17 0845 Signed Impressions: Service Date/Time: Thursday, June 01, 2017 08:48 - CONCLUSION: The lungs are clear. Sarbjit Savage MD Abdomen/Pelvis CT 06/01/17 0000 Signed Impressions: Service Date/Time: Friday, June 02, 2017 00:33 - CONCLUSION: 1. 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 2. No large lymph nodes. 3. Enlarged prostate. 4. Diffuse atherosclerotic disease. Arvin Medina MD Objective Remarks GENERAL: This is a well-nourished, well-developed patient, no distress. HEENT: NC, AT. CARDIOVASCULAR: Regular rate and rhythm without murmurs, gallops, or rubs. RESPIRATORY: Clear to auscultation. Breath sounds equal bilaterally. No wheezes , rales, or rhonchi. GASTROINTESTINAL: Abdomen soft, mild generalized tenderness, nondistended. Normoactive bowel sounds. MUSCULOSKELETAL: Extremities without clubbing, cyanosis, or edema. NEURO: Alert & Oriented x4 to person, place, time, situation. Moves all ext x4. PSYCH: Mood and affect appropriate. Procedures Right hemicolectomy Medications and IVs Current Medications Medications (Trade) Dose Ordered Sig/Quan Route Start Time Stop Time Status Last Admin (D50w (Vial) Inj) 50 ml UNSCH PRN IV PUSH 06/01/17 11:45 (Glucagon Inj) 1 mg STAT PRN IM 06/01/17 11:45 (Lipitor) 40 mg HS PO 06/01/17 21:00 06/07/17 20:40 (Flomax) 0.4 mg DAILY PO 06/01/17 12:00 06/08/17 08:42 (Diovan) 320 mg HS PO 06/01/17 21:00 06/07/17 20:39 (NovoLOG SUPPLEMENTAL SCALE) 1 ACHS SLIDING SCALE SQ 06/01/17 12:00 06/08/17 12:33 (NS Flush) 2 ml UNSCH PRN IV FLUSH 06/01/17 11:45 (NS Flush) 2 ml BID IV FLUSH 06/01/17 21:00 06/08/17 08:44 (Tylenol) 650 mg Q4H PRN PO 06/01/17 11:45 06/08/17 13:23 (Narcan Inj) 0.4 mg UNSCH PRN IV PUSH 06/01/17 11:45 (Senokot) 17.2 mg Q12H PRN PO 06/01/17 11:45 (Protonix) 40 mg DAILY PO 06/03/17 09:00 06/08/17 08:42 Lactated Ringer's 1,000 ml @ 30 mls/hr Q24H PRN IV 06/06/17 03:15 06/09/17 03:14 (Betadine 5% Antisepsis Kit) 1 applic SALES NEGOTIATOR PRN EACH NARE 06/06/17 03:15 06/09/17 03:14 (Chlorhexidine 2% Cloth) 3 pack SALES NEGOTIATOR PRN TOPICAL 06/06/17 03:15 06/09/17 03:14 (Zofran Inj) 4 mg Q6H PRN IV PUSH 06/06/17 14:45 06/06/17 17:32 (Percocet 5-325 Mg) 1 tab Q6H PRN PO 06/06/17 14:45 06/07/17 09:06 (Morphine Inj) 2 mg Q3H PRN IV PUSH 06/06/17 14:45 (Lovenox Inj) 30 mg Q24H SQ 06/07/17 14:00 Future Hold 06/07/17 14:55 (Entereg) 12 mg BID PO 06/07/17 21:00 06/14/17 09:01 06/08/17 08:42 (Benadryl) 25 mg Q6H PRN PO 06/06/17 20:45 06/08/17 08:43 (Benadryl 2% Cream) 1 applic TID PRN TOPICAL 06/07/17 15:30 A/P Problem List: (1) Hypoglycemia ICD Code: E16.2 - Hypoglycemia, unspecified (2) Anemia ICD Code: D64.9 - Anemia, unspecified (3) Cognitive impairment ICD Code: R41.89 - Other symptoms and signs involving cognitive functions and awareness (4) Mass of cecum ICD Code: K63.9 - Disease of intestine, unspecified Assessment and Plan Cecal mass Likely the cause of the patient's bleeding. Suspicious for malignancy. Surgery consult appreciated. S/p right hemicolectomy 06/06. He has been passing gas. - hold aspirin. - diet per surgery. Currently on clears. - rehab efforts. - IS. - pain control. Anemia Stable now s/p 2 units PRBC. S/p endoscopy/colonoscopy, EGD showed small duodenal ulcer/gastritis/hiatal hernia/irregular Z line. Colonoscopy showed ulcerated mass in the cecum/diverticulosis in the sigmoid colon/polyps in the rectum. He also had internal hemorrhoids. - Continue Protonix po. - work-up as above. - Follow CBC and transfuse as needed. Hypoglycemia The pt presented to the hospital with a hypoglycemic episode. A1c 6.7%. - hold oral agents. On metformin 1000 mg BID at home. - insulin sliding scale with coverage. Itching Chronic problem. Has seen a kaiawhina in the past and was diagnosed with dermatitis. - Benadryl as needed. - outpt follow-up. Confusion Likely underlying dementia. - will refer to neurology upon discharge. PPx: Yoan Fleming DO Jun 08, 2017 15:43
[2017-06-08 16:00] VITALS: BP 133/62; PULSE 64; RESP 16; TEMP 98.6; O2SAT 94
[2017-06-08 20:00] VITALS: BP 141/70; PULSE 63; RESP 18; TEMP 98.8; O2SAT 95
[2017-06-08] MEDS: VALSARTAN 80 MG TAB PO SCH (21:00)
[2017-06-08] MEDS: ATORVASTATIN 40 MG TAB PO SCH (22:24)
[2017-06-09] VITALS: BP 126/60; PULSE 65; RESP 18; TEMP 98; O2SAT 96
[2017-06-09 05:31] LABS: HEMATOCRIT 23.9 % (39.0-51.0); MEAN CELL VOLUME 80.3 FL (80.0-100.0); MEAN CORPUSCULAR HEMOGLOBIN 26.9 PG (27.0-34.0); MEAN CORPUSCULAR HGB CONC 33.5 % (32.0-36.0); MEAN PLATELET VOLUME 8.5 FL (7.0-11.0); PLATELET COUNT 281 TH/MM3 (150-450); RED BLOOD COUNT 2.97 MIL/MM3 (4.50-5.90); WHITE BLOOD COUNT 9.8 TH/MM3 (4.0-11.0)
[2017-06-09 08:00] VITALS: BP 135/62; PULSE 66; RESP 16; TEMP 97.8; O2SAT 96
[2017-06-09] MEDS: INSULIN ASPART SUPPLEMENTAL SCALE SQ SCH ×4 (09:00→19:26)
[2017-06-09] MEDS: ALVIMOPAN 12 MG CAPSULE PO SCH ×2 (09:02→19:25)
[2017-06-09] MEDS: TAMSULOSIN HCL 0.4 MG CAP PO SCH (09:02)
[2017-06-09] MEDS: SODIUM CHLORIDE 0.9% FLUSH 10 ML FLUSH IV FLUSH SCH ×2 (09:03→19:26)
[2017-06-09] MEDS: PANTOPRAZOLE SOD 40 MG DELAYED RELEASE TAB PO SCH (09:03)
[2017-06-09 12:00] VITALS: BP 138/63; PULSE 69; RESP 17; TEMP 96.1; O2SAT 96
--- NOTE | 2017-06-09 13:54 | HHI.PR ---
Subjective Remarks The patient was ambulating the hallways. He said he was still a little itchy. He complained of some pain along the umbilicus. Discussed with his family and nursing. Objective Vitals Vital Signs Date Time Temp Pulse Resp B/P (MAP) Pulse Ox O2 Delivery O2 Flow Rate FiO2 06/09/17 12:00 96.1 69 17 138/63 (88) 96 06/09/17 08:00 97.8 66 16 135/62 (86) 96 06/09/17 00:00 98.0 65 18 126/60 (82) 96 06/08/17 20:00 98.8 63 18 141/70 (93) 95 06/08/17 16:00 98.6 64 16 133/62 (85) 94 I/O 06/08/17 06/08/17 06/08/17 06/09/17 06/09/17 06/09/17 07:00 15:00 23:00 07:00 15:00 23:00 Output Total 300 ml Balance -300 ml Output Urine Total 300 ml # Voids 2 Result Diagram: 06/09/17 0326 06/08/17 0608 Imaging Last Impressions Chest X-Ray 06/01/17 0845 Signed Impressions: Service Date/Time: Thursday, June 01, 2017 08:48 - CONCLUSION: The lungs are clear. Sarbjit Savage MD Abdomen/Pelvis CT 06/01/17 0000 Signed Impressions: Service Date/Time: Friday, June 02, 2017 00:33 - CONCLUSION: 1. 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 2. No large lymph nodes. 3. Enlarged prostate. 4. Diffuse atherosclerotic disease. Arvin Medina MD Objective Remarks GENERAL: This is a well-nourished, well-developed patient, no distress. HEENT: NC, AT. CARDIOVASCULAR: Regular rate and rhythm without murmurs, gallops, or rubs. RESPIRATORY: Clear to auscultation. Breath sounds equal bilaterally. No wheezes , rales, or rhonchi. GASTROINTESTINAL: Abdomen soft, mild generalized tenderness, nondistended. Normoactive bowel sounds. MUSCULOSKELETAL: Extremities without clubbing, cyanosis, or edema. NEURO: Alert & Oriented x4 to person, place, time, situation. Moves all ext x4. PSYCH: Mood and affect appropriate. Procedures Right hemicolectomy Medications and IVs Current Medications Medications (Trade) Dose Ordered Sig/Quan Route Start Time Stop Time Status Last Admin (D50w (Vial) Inj) 50 ml UNSCH PRN IV PUSH 06/01/17 11:45 (Glucagon Inj) 1 mg STAT PRN IM 06/01/17 11:45 (Lipitor) 40 mg HS PO 06/01/17 21:00 06/08/17 22:24 (Flomax) 0.4 mg DAILY PO 06/01/17 12:00 06/09/17 09:02 (Diovan) 320 mg HS PO 06/01/17 21:00 06/08/17 21:00 (NovoLOG SUPPLEMENTAL SCALE) 1 ACHS SLIDING SCALE SQ 06/01/17 12:00 06/09/17 12:40 (NS Flush) 2 ml UNSCH PRN IV FLUSH 06/01/17 11:45 (NS Flush) 2 ml BID IV FLUSH 06/01/17 21:00 06/09/17 09:03 (Tylenol) 650 mg Q4H PRN PO 06/01/17 11:45 06/08/17 13:23 (Narcan Inj) 0.4 mg UNSCH PRN IV PUSH 06/01/17 11:45 (Senokot) 17.2 mg Q12H PRN PO 06/01/17 11:45 (Protonix) 40 mg DAILY PO 06/03/17 09:00 06/09/17 09:03 (Zofran Inj) 4 mg Q6H PRN IV PUSH 06/06/17 14:45 06/06/17 17:32 (Percocet 5-325 Mg) 1 tab Q6H PRN PO 06/06/17 14:45 06/07/17 09:06 (Morphine Inj) 2 mg Q3H PRN IV PUSH 06/06/17 14:45 (Lovenox Inj) 30 mg Q24H SQ 06/07/17 14:00 Future hold 06/07/17 14:55 (Entereg) 12 mg BID PO 06/07/17 21:00 06/14/17 09:01 06/09/17 09:02 (Benadryl) 25 mg Q6H PRN PO 06/06/17 20:45 06/08/17 08:43 (Benadryl 2% Cream) 1 applic TID PRN TOPICAL 06/07/17 15:30 A/P Problem List: (1) Hypoglycemia ICD Code: E16.2 - Hypoglycemia, unspecified (2) Anemia ICD Code: D64.9 - Anemia, unspecified (3) Cognitive impairment ICD Code: R41.89 - Other symptoms and signs involving cognitive functions and awareness (4) Mass of cecum ICD Code: K63.9 - Disease of intestine, unspecified Assessment and Plan Cecal mass Likely the cause of the patient's bleeding. Suspicious for malignancy. Surgery consult appreciated. S/p right hemicolectomy 06/06. He had a bowel movement. 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 - hold aspirin. - management per surgery. - Currently on clear liquids. Diet per surgery. - rehab efforts. - IS. - pain control. Anemia Stable now s/p 2 units PRBC. S/p endoscopy/colonoscopy, EGD showed small duodenal ulcer/gastritis/hiatal hernia/irregular Z line. Colonoscopy showed ulcerated mass in the cecum/diverticulosis in the sigmoid colon/polyps in the rectum. He also had internal hemorrhoids. - Continue Protonix po. - work-up as above. - Follow CBC and transfuse as needed. Hypoglycemia The pt presented to the hospital with a hypoglycemic episode. A1c 6.7%. - hold oral agents. On metformin 1000 mg BID at home. - insulin sliding scale with coverage. Itching Chronic problem. Has seen a hr administrator in the past and was diagnosed with dermatitis. - Benadryl as needed. - outpt follow-up. Confusion Likely underlying dementia. - will refer to neurology upon discharge. PPx: SCDs Discharge Planning Await surgical clearance Yoan Martell DO Jun 09, 2017 13:53
[2017-06-09] MEDS: ENOXAPARIN SODIUM 30 MG/0.3 ML SYRINGE SQ SCH (15:02)
[2017-06-09 16:00] VITALS: BP 140/65; PULSE 63; RESP 17; TEMP 97.6; O2SAT 94
--- NOTE | 2017-06-09 18:07 | HHI.PR ---
Subjective Subjective Notes No complaints; walking in hallways No flatus or BM yet Objective Vitals/I&O Vital Signs Date Time Temp Pulse Resp B/P (MAP) Pulse Ox O2 Delivery O2 Flow Rate FiO2 06/09/17 16:00 97.6 63 17 140/65 (90) 94 06/07/17 11:41 21 06/06/17 16:30 Nasal Cannula 2 Labs Laboratory Tests Test 06/09/17 03:26 White Blood Count 9.8 Red Blood Count 2.97 Hemoglobin 8.0 Hematocrit 23.9 Mean Corpuscular Volume 80.3 Mean Corpuscular Hemoglobin 26.9 Mean Corpuscular Hemoglobin Concent 33.5 Red Cell Distribution Width 18.0 Platelet Count 281 Mean Platelet Volume 8.5 Lungs: Clear Abdomen: Other (Distended, but nontender) A/P Assessment and Plan A/P Assessment and Plan 87 year old male with anemia; cecal mass -POD#3 lap assisted RIGHT hemicolectomy -Await pathology -Clear liquids; continue and not advance until better bowel activity -PT -IS -Monitor Hb ---8.0 today Yoan Lewis MD Jun 09, 2017 18:07
[2017-06-09] MEDS: VALSARTAN 80 MG TAB PO SCH (19:26)
[2017-06-09] MEDS: ATORVASTATIN 40 MG TAB PO SCH (19:26)
[2017-06-09 20:00] VITALS: BP 136/63; PULSE 62; RESP 18; TEMP 98.3; O2SAT 95
[2017-06-10] VITALS: BP 106/52; PULSE 66; RESP 18; TEMP 97.9; O2SAT 97
[2017-06-10 08:00] VITALS: BP 138/65; PULSE 64; RESP 17; TEMP 98; O2SAT 96
[2017-06-10] MEDS: ALVIMOPAN 12 MG CAPSULE PO SCH ×2 (08:50→19:58)
[2017-06-10] MEDS: PANTOPRAZOLE SOD 40 MG DELAYED RELEASE TAB PO SCH (08:50)
[2017-06-10] MEDS: TAMSULOSIN HCL 0.4 MG CAP PO SCH (08:50)
[2017-06-10] MEDS: INSULIN ASPART SUPPLEMENTAL SCALE SQ SCH ×4 (08:53→19:59)
[2017-06-10] MEDS: SODIUM CHLORIDE 0.9% FLUSH 10 ML FLUSH IV FLUSH SCH ×2 (08:53→19:58)
--- NOTE | 2017-06-10 09:57 | HHI.PR ---
Subjective Subjective Notes doing better, ambulating, pleasently confused, answering questions, +bm Objective Vitals/I&O Vital Signs Date Time Temp Pulse Resp B/P (MAP) Pulse Ox O2 Delivery O2 Flow Rate FiO2 06/10/17 08:00 98.0 64 17 138/65 (89) 96 06/07/17 11:41 21 06/06/17 16:30 Nasal Cannula 2 Labs Laboratory Tests Test 06/10/17 03:55 Hemoglobin 8.0 Hematocrit 24.0 Lungs: Clear Abdomen: Non-distended, Other (incisional tenderness) A/P Assessment and Plan 87 year old male with anemia; cecal mass -POD#4 lap assisted RIGHT hemicolectomy - pathology reviewed with patient and -Clear liquids; continue to advance -PT -IS -Monitor Hb ---8.0 today stable from yesterday lovenox ok to start Jerrod Moreno MD Jun 10, 2017 09:57
--- NOTE | 2017-06-10 11:18 | HHI.PR ---
Subjective Remarks The patient was ambulating the hallways with his family. He requested education on his condition. He said that he has been having bowel movements. He was hopeful to go home tomorrow. Discussed with nursing. Objective Vitals Vital Signs Date Time Temp Pulse Resp B/P (MAP) Pulse Ox O2 Delivery O2 Flow Rate FiO2 06/10/17 08:00 98.0 64 17 138/65 (89) 96 06/10/17 00:00 97.9 66 18 106/52 (70) 97 06/09/17 20:00 98.3 62 18 136/63 (87) 95 06/09/17 16:00 97.6 63 17 140/65 (90) 94 06/09/17 12:00 96.1 69 17 138/63 (88) 96 I/O 06/09/17 06/09/17 06/09/17 06/10/17 06/10/17 06/10/17 07:00 15:00 23:00 07:00 15:00 23:00 Intake Total 1440 ml 580 ml Balance 1440 ml 580 ml Intake Oral 1440 ml 580 ml # Voids 2 4 4 # Bowel Movements 0 Result Diagram: 06/10/17 0355 06/08/17 0608 Imaging Last Impressions Chest X-Ray 06/01/17 0845 Signed Impressions: Service Date/Time: Thursday, June 01, 2017 08:48 - CONCLUSION: The lungs are clear. Sarbjit Savage MD Abdomen/Pelvis CT 06/01/17 0000 Signed Impressions: Service Date/Time: Friday, June 02, 2017 00:33 - CONCLUSION: 1. 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 2. No large lymph nodes. 3. Enlarged prostate. 4. Diffuse atherosclerotic disease. Arvin Medina MD Objective Remarks GENERAL: This is a well-nourished, well-developed patient, no distress. HEENT: NC, AT. CARDIOVASCULAR: Regular rate and rhythm without murmurs, gallops, or rubs. RESPIRATORY: Clear to auscultation. Breath sounds equal bilaterally. No wheezes , rales, or rhonchi. GASTROINTESTINAL: Abdomen soft, mild generalized tenderness, nondistended. Normoactive bowel sounds. MUSCULOSKELETAL: Extremities without clubbing, cyanosis, or edema. NEURO: Alert & Oriented x4 to person, place, time, situation. Moves all ext x4. PSYCH: Mood and affect appropriate. Procedures Right hemicolectomy Medications and IVs Current Medications Medications (Trade) Dose Ordered Sig/Quan Route Start Time Stop Time Status Last Admin (D50w (Vial) Inj) 50 ml UNSCH PRN IV PUSH 06/01/17 11:45 (Glucagon Inj) 1 mg STAT PRN IM 06/01/17 11:45 (Lipitor) 40 mg HS PO 06/01/17 21:00 06/09/17 19:26 (Flomax) 0.4 mg DAILY PO 06/01/17 12:00 06/10/17 08:50 (Diovan) 320 mg HS PO 06/01/17 21:00 06/09/17 19:26 (NovoLOG SUPPLEMENTAL SCALE) 1 ACHS SLIDING SCALE SQ 06/01/17 12:00 06/10/17 08:53 (NS Flush) 2 ml UNSCH PRN IV FLUSH 06/01/17 11:45 (NS Flush) 2 ml BID IV FLUSH 06/01/17 21:00 06/10/17 08:53 (Tylenol) 650 mg Q4H PRN PO 06/01/17 11:45 06/08/17 13:23 (Narcan Inj) 0.4 mg UNSCH PRN IV PUSH 06/01/17 11:45 (Senokot) 17.2 mg Q12H PRN PO 06/01/17 11:45 (Protonix) 40 mg DAILY PO 06/03/17 09:00 06/10/17 08:50 (Zofran Inj) 4 mg Q6H PRN IV PUSH 06/06/17 14:45 06/06/17 17:32 (Percocet 5-325 Mg) 1 tab Q6H PRN PO 06/06/17 14:45 06/07/17 09:06 (Morphine Inj) 2 mg Q3H PRN IV PUSH 06/06/17 14:45 (Lovenox Inj) 30 mg Q24H SQ 06/07/17 14:00 Future hold 06/09/17 15:02 (Entereg) 12 mg BID PO 06/07/17 21:00 06/14/17 09:01 06/10/17 08:50 (Benadryl) 25 mg Q6H PRN PO 06/06/17 20:45 06/08/17 08:43 (Benadryl 2% Cream) 1 applic TID PRN TOPICAL 06/07/17 15:30 A/P Problem List: (1) Hypoglycemia ICD Code: E16.2 - Hypoglycemia, unspecified (2) Anemia ICD Code: D64.9 - Anemia, unspecified (3) Cognitive impairment ICD Code: R41.89 - Other symptoms and signs involving cognitive functions and awareness (4) Mass of cecum ICD Code: K63.9 - Disease of intestine, unspecified Assessment and Plan Cecal mass Likely the cause of the patient's bleeding. Suspicious for malignancy. Surgery consult appreciated. S/p right hemicolectomy 06/06. He had a bowel movement. 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 - resume aspirin when OK per surgery. - management per surgery. - Currently on full liquids. - rehab efforts. - IS. - pain control. Anemia Stable now s/p 2 units PRBC. S/p endoscopy/colonoscopy, EGD showed small duodenal ulcer/gastritis/hiatal hernia/irregular Z line. Colonoscopy showed ulcerated mass in the cecum/diverticulosis in the sigmoid colon/polyps in the rectum. He also had internal hemorrhoids. - Continue Protonix po. - work-up as above. - Follow CBC and transfuse as needed. Hypoglycemia The pt presented to the hospital with a hypoglycemic episode. A1c 6.7%. - hold oral agents. On metformin 1000 mg BID at home. - insulin sliding scale with coverage. Itching Chronic problem. Has seen a cardiology clinical nurse specialist in the past and was diagnosed with dermatitis. - Benadryl as needed. - outpt follow-up. Confusion Likely underlying dementia. - will refer to neurology upon discharge. PPx: SCDs Discharge Planning Await surgical clearance Yoan Martell DO Jun 10, 2017 11:18
[2017-06-10 12:00] VITALS: BP 130/61; PULSE 65; RESP 17; TEMP 97.4; O2SAT 96
[2017-06-10 16:00] VITALS: BP 123/60; PULSE 67; RESP 17; TEMP 97.6; O2SAT 96
[2017-06-10 16:04] VITALS: BP 218/88; PULSE 88; RESP 18; TEMP 98.1; O2SAT 96
[2017-06-10] MEDS: ATORVASTATIN 40 MG TAB PO SCH (19:58)
[2017-06-10] MEDS: VALSARTAN 80 MG TAB PO SCH (19:58)
[2017-06-10 20:00] VITALS: BP 123/57; PULSE 61; RESP 18; TEMP 98; O2SAT 97
[2017-06-11] VITALS: BP 141/67; PULSE 66; RESP 18; TEMP 97.9; O2SAT 97
[2017-06-11 08:00] VITALS: BP 129/66; PULSE 67; RESP 16; TEMP 97.3; O2SAT 98
[2017-06-11] MEDS: PANTOPRAZOLE SOD 40 MG DELAYED RELEASE TAB PO SCH (08:37)
[2017-06-11] MEDS: ALVIMOPAN 12 MG CAPSULE PO SCH (08:38)
[2017-06-11] MEDS: TAMSULOSIN HCL 0.4 MG CAP PO SCH (08:38)
[2017-06-11] MEDS: SODIUM CHLORIDE 0.9% FLUSH 10 ML FLUSH IV FLUSH SCH (08:38)
[2017-06-11] MEDS: INSULIN ASPART SUPPLEMENTAL SCALE SQ SCH ×3 (08:38→16:09)
--- NOTE | 2017-06-11 11:51 | HHI.PR ---
Subjective Subjective Notes Ambulating in the hallway Hungry Tired of eating grits and would like some Cornflakes Talking with Dr. Martell Objective Vitals/I&O Vital Signs Date Time Temp Pulse Resp B/P (MAP) Pulse Ox O2 Delivery O2 Flow Rate FiO2 06/11/17 00:00 97.9 66 18 141/67 (91) 97 06/07/17 11:41 21 Cardiovascular: Regular Lungs: Clear Abdomen: Other (incision c/d/i ) Extremities: No edema A/P Assessment and Plan 87 year old male with anemia; cecal mass -POD5 lap assisted RIGHT hemicolectomy -1800 ADA -PT -IS -Lovenox -Monitor Hmg ---8.0 -OOB as tolerated today -GS clear for DC -Follow up with Dr. Esteban on June 18 at 2:20PM -Will need follow up with Medical Oncology ---family desires to do this in [place] Attending Statement The exam, history, and the medical decision-making described in the above note were completed with the assistance of the mid-level provider. I reviewed and agree with the findings presented. I attest that I had a [id number] encounter with the patient on the same day, and personally performed and documented my assessment and findings in the medical record. s/p Right hemicolectomy, doing well, tolerating PO, +BM ok to DC home today Lauren GrossmanP/Net Making Supervisor WET ROOM SUPERVISOR Jun 11, 2017 11:51 Perfecto Esteban MD Jun 12, 2017 11:03
[2017-06-11 12:00] VITALS: BP 121/56; PULSE 69; RESP 18; TEMP 97.6; O2SAT 96
[2017-06-11] MEDS ORDERED: metFORMIN HCL 500 MG TAB PO ONE (14:00)
--- NOTE | 2017-06-11 17:56 | HHI.DCPOC ---
Discharge Care Plan Diagnosis: (1) Mass of cecum (2) Cognitive impairment (3) Hypoglycemia (4) Anemia (5) Diabetes mellitus type 2, noninsulin dependent Goals to Promote Your Health * To prevent worsening of your condition and complications * To maintain your health at the optimal level Directions to Meet Your Goals Take your medications as prescribed Follow your dietary instruction Follow activity as directed Keep your appointments as scheduled Take your immunizations and boosters as scheduled If your symptoms worsen call your PCP, if no PCP go to Urgent Care Center or Emergency Room Smoking is Dangerous to Your Health. Avoid second hand smoke Call the 24-hour hour crisis hotline for domestic abuse at Yoan Martell DO Jun 11, 2017 17:56
--- NOTE | 2017-06-11 17:58 | HHI.DS ---
Discharge Summary Admission Date Jun 01, 2017 at 10:37 Discharge Date: Jun 11, 2017 Admitting Diagnosis ANEMIA (1) Hypoglycemia ICD Code: E16.2 - Hypoglycemia, unspecified Diagnosis: Principal (2) Anemia ICD Code: D64.9 - Anemia, unspecified (3) Cognitive impairment ICD Code: R41.89 - Other symptoms and signs involving cognitive functions and awareness (4) Mass of cecum ICD Code: K63.9 - Disease of intestine, unspecified Diagnosis: Principal Procedures Right hemicolectomy Brief History - From Admission This patient is an 86-year-old gentleman with a history of diabetes and coronary disease who was recently prescribed Bactrim for urinary tract infection by his primary care provider. Patient did have increased confusion from underlying baseline cognitive impairment per his spouse. He was not nauseated or vomiting but he was not himself and his called 911. The blood sugar on the arrival of the EMS services was 29. Here it has been in the 40s and 50s despite hypoglycemic treatment. Patient also was increasingly short of breath over the last week. His hemoglobin has dropped significantly. He is not aware of any history of anemia and does complain of some black stools. Guaiac positive evaluation was obtained in the emergency room. Patient does take aspirin daily for coronary artery disease with a stent. Cardiac evaluation per the patient recently by his primary care doctor was within normal limits. He did have some frequent urination and was placed on Bactrim again in addition to Flomax and Vesicare which he took already for urinary troubles. Patient at this time is alert and oriented. Get his blood sugar is still quite low and patient will require intravenous glucose for continued stabilization. For these reasons he is admitted to the hospital CBC/BMP: 06/10/17 0355 06/08/17 0608 Significant Findings Laboratory Tests Test 06/09/17 03:26 06/10/17 03:55 Red Blood Count 2.97 MIL/MM3 (4.50-5.90) Hemoglobin 8.0 GM/DL (13.0-17.0) 8.0 GM/DL (13.0-17.0) Hematocrit 23.9 % (39.0-51.0) 24.0 % (39.0-51.0) Mean Corpuscular Hemoglobin 26.9 PG (27.0-34.0) Red Cell Distribution Width 18.0 % (11.6-17.2) Imaging Last Impressions Chest X-Ray 06/01/17 0845 Signed Impressions: Service Date/Time: Thursday, June 01, 2017 08:48 - CONCLUSION: The lungs are clear. Sarbjit Savage MD Abdomen/Pelvis CT 06/01/17 0000 Signed Impressions: Service Date/Time: Friday, June 02, 2017 00:33 - CONCLUSION: 1. 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 2. No large lymph nodes. 3. Enlarged prostate. 4. Diffuse atherosclerotic disease. Arvin Medina MD PE at Discharge GENERAL: This is a well-nourished, well-developed patient, no distress. HEENT: NC, AT. CARDIOVASCULAR: Regular rate and rhythm without murmurs, gallops, or rubs. RESPIRATORY: Clear to auscultation. Breath sounds equal bilaterally. No wheezes , rales, or rhonchi. GASTROINTESTINAL: Abdomen soft, mild generalized tenderness, nondistended. Normoactive bowel sounds. MUSCULOSKELETAL: Extremities without clubbing, cyanosis, or edema. NEURO: Alert & Oriented x4 to person, place, time, situation. Moves all ext x4. PSYCH: Mood and affect appropriate. Pt update on day of discharge The pt was eager to go home, as was his family. He has been ambulating and tolerating a diet. Discussed with nursing and surgery. Hospital Course Cecal mass Imaging suspicious for malignancy. Surgery was consulted. S/p right hemicolectomy 06/06. He had a bowel movement. 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 His diet was slowly advanced. He worked with physical therapy. He received incentive spirometry. He received pain control as needed. He was cleared for discharge by surgery and will follow up with them as an outpt. He will be referred to oncology. Anemia Stable s/p 2 units PRBC. GI was consulted. S/p endoscopy/colonoscopy, EGD showed small duodenal ulcer/gastritis/hiatal hernia/irregular Z line. Colonoscopy showed ulcerated mass in the cecum/diverticulosis in the sigmoid colon/polyps in the rectum. He also had internal hemorrhoids. He was continued on Protonix po, which he will continue. Surgery cleared the pt to resume his baby ASA regimen. Hypoglycemia The pt presented to the hospital with a hypoglycemic episode. A1c was 6.7%. We held oral agents. He was placed on an insulin sliding scale with coverage. His blood sugar became elevated as his diet was advanced. He will resume his metformin but we will hold his glipizide. He will check his glucose closely at home and will update his PCP over the phone for any further adjustments that need to be made. Itching Chronic problem. Has seen a surface grinder tender in the past and was diagnosed with dermatitis. He received Benadryl as needed. Confusion Chronic. Concern for dementia. The pt was referred to neurology upon discharge. Pt Condition on Discharge: Stable Discharge Disposition: Discharge Home Discharge Time: > 30 minutes Discharge Instructions DIET: Follow Instructions for: Diabetic Diet Activities you can perform: Weight Bearing as Tommie Follow up Referrals: Neurology - 2 Weeks Oncology - 2 Weeks PCP Follow-up - 1 Week Surgical - 06/18/17 with Perfecto Esteban MD Appt set for June 18 at 2: 20PM New Medications: Pantoprazole (Pantoprazole) 40 Mg Tab 40 MG PO DAILY for Stomach, #30 TAB Continued Medications: Aspirin DR (Aspirin EC) 81 Mg Tabdr 81 MG PO DAILY, TAB 0 Refills Atorvastatin (Lipitor) 40 Mg Tab 40 MG PO HS for Cholesterol Management, #30 TAB 0 Refills Metformin (Metformin) 1,000 Mg Tab 1000 MG PO BIDPC for Blood Sugar Management, #60 TAB 0 Refills Solifenacin (Vesicare) 5 Mg Tab 5 MG PO DAILY for Urinary Symptom Managemen, #30 TAB 0 Refills Tamsulosin (Tamsulosin) 0.4 Mg Cap 0.4 MG PO DAILY for Manage Prostate Problems, #30 CAP 0 Refills Valsartan (Diovan) 320 Mg Tab 320 MG PO HS, #30 TAB 0 Refills Discontinued Medications: Glipizide (Glipizide) 10 Mg Tab 10 MG PO DAILY for Blood Sugar Management, #30 TAB 0 Refills Take 30 minutes before a meal Yoan Martell DO Jun 11, 2017 17:58
[2017-06-11] MEDS ORDERED: PANT40TA3 PO (18:01)
[2017-06-11] MEDS ORDERED: metFORMIN HCL 500 MG TAB PO SCH ×2 (21:00)
== END 2017-06-11 19:04 | disposition home or self-care (01) | DRG 330 ==
LOC: PHED 07:56 → PHEDA 10:37 → PH3B 11:15 → N07A 06-05 17:27
PROVIDERS: ADMIT Family Medicine; ATTEND Family Medicine
PROC: 30233N1 Transfusion of Nonautologous Red Blood Cells into Peripheral Vein, Percutaneous Approach (ICD-10-PCS; 2017-06-01)
PROC: 0DBH8ZX Excision of Cecum, Via Natural or Artificial Opening Endoscopic, Diagnostic (ICD-10-PCS; 2017-06-04)
PROC: 0DBP8ZX Excision of Rectum, Via Natural or Artificial Opening Endoscopic, Diagnostic (ICD-10-PCS; 2017-06-04)
PROC: 0DB98ZX Excision of Duodenum, Via Natural or Artificial Opening Endoscopic, Diagnostic (ICD-10-PCS; 2017-06-04)
PROC: 0DB78ZX Excision of Stomach, Pylorus, Via Natural or Artificial Opening Endoscopic, Diagnostic (ICD-10-PCS; 2017-06-04)
PROC: 0DB38ZX Excision of Lower Esophagus, Via Natural or Artificial Opening Endoscopic, Diagnostic (ICD-10-PCS; 2017-06-04)
PROC: 0DBL0ZZ Excision of Transverse Colon, Open Approach (ICD-10-PCS; 2017-06-06)
PROC: 0WQF4ZZ Repair Abdominal Wall, Percutaneous Endoscopic Approach (ICD-10-PCS; 2017-06-06)
PROC: 0DTF0ZZ Resection of Right Large Intestine, Open Approach (ICD-10-PCS; principal; 2017-06-06 11:53)
DX: C18.2 Malignant neoplasm of ascending colon (principal); K92.2 Gastrointestinal hemorrhage, unspecified; K26.9 Duodenal ulcer, unspecified as acute or chronic, without hemorrhage or perforation; F03.90 Unspecified dementia, unspecified severity, without behavioral disturbance, psychotic disturbance, mood disturbance, and anxiety; D62 Acute posthemorrhagic anemia; K92.1 Melena; E11.649 Type 2 diabetes mellitus with hypoglycemia without coma; I10 Essential (primary) hypertension; E78.5 Hyperlipidemia, unspecified; I25.10 Atherosclerotic heart disease of native coronary artery without angina pectoris; N40.1 Benign prostatic hyperplasia with lower urinary tract symptoms; R35.0 Frequency of micturition; K42.9 Umbilical hernia without obstruction or gangrene; K62.1 Rectal polyp; K64.8 Other hemorrhoids; K57.30 Diverticulosis of large intestine without perforation or abscess without bleeding; K44.9 Diaphragmatic hernia without obstruction or gangrene; K29.70 Gastritis, unspecified, without bleeding; L30.9 Dermatitis, unspecified; R41.89 Other symptoms and signs involving cognitive functions and awareness; Z95.5 Presence of coronary angioplasty implant and graft; Z79.84 Long term (current) use of oral hypoglycemic drugs; Z79.82 Long term (current) use of aspirin
CPT/HCPCS: 36430; 71045; 74177; 80048; 80053; 81001; 82378; 82565; 82607; 82746; 82947; 82948; 83036; 83540; 83550; 83735; 85014; 85018; 85025; 85027; 85610; 85730; 86850; 86900; 86901; 86920; 88305; 88307; 88309; 93005; 94150; 96365; C9113; J0131; J0690; J1650; J1815; J2270; J2405; J2710; J3010; J7030; J7050; J7070; P9016; Q9963; Q9967